=== PATIENT | male | born 1945 | race Caucasian/White ===

== ENCOUNTER 2016-06-03 09:56 | Inpatient (IN) | payer OTHER ==
[2016-06-03] MEDS ORDERED: cefTRIAXone 2 GM in D5W 50 ML IV SCH (10:30)
[2016-06-03] MEDS ORDERED: POTASSIUM Cl (KCl) 20 MEQ in D5W NS 1,000 ML IV SCH (10:30)
--- NOTE | 2016-06-03 11:44 | GHP ---
DATE OF ADMISSION: 06/03/2016 REASON FOR ADMISSION: Fever, jaundice, gallbladder hydrops. HISTORY OF PRESENT ILLNESS: The patient is a 71-year-old male who has been suffering from depressio n. He has a long history of depression and anxiety. He has been on multiple medications without be nefit. He did have liver dysfunction from Depakote in the past. He was recently started on Tegreto l, and after a single dose of Tegretol, he developed a fever to 102 and some chills. The Tegretol w as stopped, but he was treated empirically for influenza with Tamiflu. His temperature improved, bu t he was feeling somewhat worse and his urine became dark orange in color. He was seen and blood wo rk was obtained which showed that he had jaundice with bilirubin of 6 and the pattern of cholestatic jaundice. Ultrasound of the gallbladder was arranged which showed gallbladder hydrops and some slu dge in the gallbladder without obvious enlargement of the biliary tree of pancreatic ducts. He is b ng admitted for further evaluation and treatment. Of interest, he states that he has had gallblad shirley hydrops in the past which resolved spontaneously. CURRENT MEDICATIONS: Zofran as needed for nausea, propranolol 5 mg 3 times a day as needed for anxi ety, Carafate 1 g suspension 4 times daily, promethazine 12.5 mg as needed for nausea, tamsulosin 0. 4 mg once daily, Lumigan 0.1% solution 1 drop to his affected eye in the evening once daily, amlodip ine 2.5 mg daily, Crestor 5 mg daily, Plavix 75 mg daily, Synthroid 200 mcg daily, aspirin 81 mg diana ly, olanzapine 5 mg 1/2 tablet in the a.m. 1 tablet in the p.m., gabapentin 100 mg twice daily, Vist aril 25 mg every 8 hours as needed for nausea, trazodone 50 mg h.s. as needed for sleep, Benadryl 50 mg h.s. as needed for sleep, Tylenol as needed for pain, Ambien CR 12.5 mg h.s. p.r.n. sleep. PAST MEDICAL HISTORY: Significant for advanced coronary artery disease status post bypass graft as well as stenting x2, depression, asthma, GERD, diverticulitis, hypothyroidism, hyperlipidemia, prior Prinzmetal angina, right lateral compartment partial knee replacement, bilateral cataract surgery, sinus surgery x2, lumbar fusion and prior small bowel obstruction. ALLERGIES: He is allergic to Depakote because of liver failure. He does not tolerate benzodiazepin es well; he is not allergic, but he has had issues with benzodiazepines in the past. He is allergic to latex and IV CT contrast. REVIEW OF SYSTEMS: He is feeling nauseated. He still has fever to greater than 100 at night with s ome chills. He describes some significant nausea but no significant abdominal pain. He denies coug h, shortness of breath or congestion. PHYSICAL EXAMINATION: Pupils are equal and reactive to light. LUNGS: Clear to auscultation. HEAR T: Regular rate and rhythm without significant murmurs. ABDOMEN: Reveals normal bowel sounds to d ecreased bowel sounds. He has mild right upper abdominal tenderness. He has no peripheral __ and moves all extremities well. He is alert, oriented, appropriate. Appears somewhat anxious. He is also jaundiced. He has scleral icterus as well as jaundice tone to his skin. LABORATORY: Blood work obtained yesterday reveals a white count of 10,300 with a mild left shift, h emoglobin of 15.8, sodium 127, chloride 94, creatinine 1.5, BUN 23, total protein 6.2, aspartate ami notransferase 135, alkaline phosphatase 132, total bilirubin 6.0, alanine aminotransferase 300, conj ugated bilirubin is 4.4, unconjugated bilirubin is 1.6. IMPRESSION: Probable acute cholecystitis. Considering his long history of nausea, there is some co ncern about some underlying process contributing to his nausea that led up to this episode. PLAN: Will admit. Will place on IV antibiotics. Will get a GI consultation as well as surgical co nsultation. We will also get an MRI with and without contrast with special attention to the head of the pancreas. /[id number]/MODL
[2016-06-03 13:47] LABS: INR 1.05 (0.83-1.16); PROTIME(PATIENT) 13.6 SEC (12.0-15.0)
[2016-06-03 13:48] LABS: APTT 22.4 SEC (23.0-38.0)
[2016-06-03 13:53] LABS: ALANINE AMINOTRANSFERASE 213 IU/L (21-72); ALBUMIN 3.5 g/dL (3.5-5.0); ALKALINE PHOSPHATASE 222 IU/L (38-126); ANION GAP 12 mEq/L (8-16); ASPARTATE AMINOTRANSFERASE 120 IU/L (17-59); BILIRUBIN,TOTAL 6.5 mg/dL (0.1-1.4); CALCIUM 8.6 mg/dL (8.5-10.4); CARBON DIOXIDE 22 mEq/l (22-31); CHLORIDE 98 mEq/L (97-110); CREATININE 1.1 mg/dL (0.7-1.3); GLOMERULAR FILTRATION RATE > 60; GLUCOSE 181 mg/dL (70-100); POTASSIUM 4.1 mEq/L (3.5-5.2); SODIUM 132 mEq/L (134-144)
[2016-06-03 13:57] LABS: ABSOLUTE IMMATURE GRANULOCYTES 0.09 10^3/uL (0.00-0.10); ADD DIFF? NO; ADD MORPH? NO; ADD SCAN? NO; ATYPICAL LYMPHOCYTE FLAG 0 (0-99); FRAGMENT RBC FLAG 0 (0-99); HEMATOCRIT 43.8 % (40.0-51.0); HEMOGLOBIN 15.6 g/dL (13.7-17.5); LEFT SHIFT FLG 50 (0-99); LIPEMIA HEMOLYSIS FLAG 90 (0-99); MEAN CELL HEMOGLOBIN 29.4 pg (27.9-34.1); MEAN CELL HEMOGLOBIN CONCENTR. 35.6 g/dL (32.4-36.7); MEAN CELL VOLUME 82.5 fL (81.5-99.8); MEAN PLATELET VOLUME 10.6 fL (8.7-11.7); PLATELET CLUMPS FLAG 10 (0-99); PLATELET COUNT 94 10^3/uL (150-400); RED BLOOD CELL COUNT 5.31 10^6/uL (4.40-6.38); RED CELL DISTRIBUTION WIDTH 13.1 % (11.5-15.2)
[2016-06-03 13:59] LABS: BILIRUBIN-CONJUGATED 5.2 mg/dL (0.0-0.5); BILIRUBIN-UNCONJUGATED 1.3 mg/dL (0.0-1.1)
--- NOTE | 2016-06-03 14:55 | GCON ---
[f rep st] CONSULTATION GI INPATIENT CONSULTATION. DATE OF CONSULTATION: 06/03/2016 REASON FOR CONSULTATION: I was kindly requested to see this patient by Dr. Rick Portillo in consultation for a chief complaint of jaundice. HISTORY OF PRESENT ILLNESS: He is a 71-year-old white male who suffers from depression. He recently was started on Tegretol and took a single dose. He then developed fever to 102. He now has a total bilirubin of 6 and was admitted to the hospital. In the past, after 2 days of Depakote, he also developed jaundice with a total bilirubin of 16. Besides the above, for his fever, he was started on Tamiflu. He is on a large number of other medications. For the most part, he denies any of them being new or any increased doses. He was placed on olanzapine approximately 6 months ago, with the dose changed several times. Workup has included an ultrasound which, by report, has a normal common bile duct. There is mention of hydrops and sludge, with some possible fluid around the gallbladder. He denies abdominal pain. Besides the above, he has a long history of dyspepsia with nausea, epigastric "gnawing" discomfort, etc. He has undergone an extensive negative workup for this, both here as well as at [facility]. 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 PAST MEDICAL HISTORY: 1. As above. 2. Coronary artery disease, status post bypass graft and stenting. 3. Depression. 4. Asthma. 5. Reflux. 6. Hypothyroidism. 7. Elevated lipids. 8. Cataract surgery. 9. Lumbar fusion. 10. Otherwise, noncontributory. MEDICATIONS: Outpatient medications include Carafate, which helps with his dyspepsia. Inpatient medications include ceftriaxone, IV fluids. SOCIAL HISTORY: He is . ALLERGIES: Include the above. He also does not tolerate benzodiazepines well. He is allergic to latex and IV CT contrast dye. FAMILY HISTORY: Negative for similar jaundice. REVIEW OF SYSTEMS: Positive pertinent review of systems as per my HPI. Otherwise, a complete review of systems is negative. PHYSICAL EXAMINATION: CONSTITUTIONAL: A nontoxic-appearing gentleman. SKIN: Jaundiced, dry. EYES: Pupils equal, round, reactive to light and accommodation. EARS, NOSE, MOUTH AND THROAT: Oropharynx without masses. Moist mucosa. CARDIOVASCULAR: Normal S2, normal PMI. RESPIRATORY: Clear to auscultation and percussion anteriorly. GASTROINTESTINAL: Abdomen is soft, nontender. NEUROLOGIC: Grossly nonfocal with cranial nerves grossly intact. PSYCHIATRIC: Orientation, insight appropriate. MUSCULOSKELETAL: Strength is grossly normal throughout. Normal station. LABORATORIES: Include the above. White count 10.4. Platelet count 85,000. Lipase, CMV and hepatitis A serologies pending. Sodium 127. Creatinine 1.5. Direct bilirubin 4.4. AST 135 with an ALT of 300. Coagulation studies, alkaline phosphatase pending. 2016 iron saturation not elevated. MRI/MRCP pending. ASSESSMENT: 1. Jaundice. Almost certainly represents a drug hypersensitivity reaction to Tegretol. In support of this is the temporal relationship, associated fever, and similar jaundice to a related agent, Depakote, in the past. Other possibilities are less likely. Doubt an obstructive cause, with ultrasound showing a normal common bile duct. A side effect of Tamiflu or one of his other medications is possible but less likely, especially with his other medications being more chronic. A nonspecific secondary cholestasis from an acute viral syndrome, such as [place] virus, is possible but also less likely. 2. Chronic dyspeptic symptoms, including nausea, epigastric "gnawing" discomfort, etc. Extensive negative workup. 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 PLAN: 1. We will complete a serologic workup with acute serologies for hepatitis B, C. Overall, with denying risk factors, unlikely, but I suspect his jaundice may continue for some time, so important to be sure. 2. Blood work also for ABIEL, antismooth muscle antibody, and EBV serologies. 3. MRI/MRCP pending. 4. We will let him eat, as doubt a surgical gallbladder process (without biliary dilation, would not present with jaundice). I doubt he will be undergoing surgery today, etc. 5. Would consider Tegretol an allergy for him. 6. Recheck total bilirubin tomorrow. 7. Otherwise, time. With a drug hypersensitivity reaction, his total bilirubin may continue to increase over the next days or week(s) before it will eventually peak and then begin to slowly resolve to normal. Thank you for allowing me to help in the care of this patient. /[id number]/MODL MTDD
[2016-06-03] MEDS ORDERED: PROMETHAZINE HCL 25 MG TAB PO PRN (15:31)
[2016-06-03] MEDS ORDERED: PROPRANOLOL HCL 20 MG TAB PO PRN (15:31)
[2016-06-03] MEDS ORDERED: GABAPENTIN 100 MG CAP PO PRN (15:31)
[2016-06-03] MEDS ORDERED: ALBUTEROL 60 PUFFS/8 GM MDI IH PRN (15:31)
[2016-06-03] MEDS: ONDANSETRON 4 MG/2 ML VIAL IVP PRN (15:39)
[2016-06-03] MEDS: D5W NS W/ 20 KCl/L 1,000 ML IV SCH ×2 (15:53→23:36)
[2016-06-03] MEDS: ACETAMINOPHEN 325 MG TAB PO PRN (15:54)
[2016-06-03] MEDS ORDERED: GADOBUTROL 10 ML VIAL IVP ONE (16:37)
--- NOTE | 2016-06-03 16:40 | GCON ---
[f rep st] CONSULTATION GENERAL SURGERY CONSULTATION DATE OF CONSULTATION: 06/03/2016 REASON FOR CONSULTATION: Cholelithiasis and elevated LFTs in the setting of nausea and malaise. 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 He had a similar episode years ago after taking Depakote. At that time, he also had an increase in liver function tests, as he does now. He was recently started on Tegretol prior to this episode. He denies abdominal pain, but he has been quite nauseated. He has not thrown up and denies fevers. Ultrasound showed possible hydrops of the gallbladder with slu dge. Labs were significant for a conjugated bilirubin of 5.2 and unconjugated bilirubin of 1.3. He also had elevated hepatic transaminases in the 200s. He had a normal lipase. An MRCP is pending. PAST MEDICAL HISTORY: Includes coronary artery disease, asthma, depression, hypothyroidism, acid re flux. PAST SURGICAL HISTORY: Includes coronary stents, CABG, spinal fusion. MEDICATIONS: Include Plavix. Please see [employer] for details. ALLERGIES: From chart review include Depakote, benzodiazepines, iodine contrast, latex. SOCIAL HISTORY: Patient is a retired radiologist. He lives in [place]. He denies smoking. FAMILY HISTORY: Noncontributory. REVIEW OF SYSTEMS: Please see HPI. PHYSICAL EXAM: GENERAL: Reveals a well-developed, well-nourished 71-year-old male, alert and orien orly x3, and in no acute distress. HEENT: Mild scleral icterus. Mucous membranes moist. Pupils eq ual and round. CHEST: Clear to auscultation bilaterally. CARDIAC: Regular rate and rhythm. ABDO MEN: Soft. Diffuse discomfort but nontender. EXTREMITIES: Warm and dry without edema. IMPRESSION: This is a 71-year-old male with nausea, malaise, and elevated LFTs, possibly secondary to drug reaction, possibly secondary to cholecystitis. PLAN: Agree with MRCP. Appreciate Internal Medicine and Gastroenterology input. This may not be a gallbladder process, but we will continue to follow in case cholecystectomy is needed. I will also discuss this with Dr. Mueller, who will see the patient later today. /[id number]/MODL
[2016-06-03] MEDS: POLYETHYLENE GLYCOL 3350 17 GM PKT PO SCH (17:21)
[2016-06-03] MEDS ORDERED: SUCRALFATE 1 GM/10 ML UDCUP PO PRN (17:30)
[2016-06-03] MEDS: HYDROCODONE/APAP 5/325 TAB PO PRN ×2 (19:31→22:33)
[2016-06-03] MEDS: amLODIPine BESYLATE 5 MG TAB PO SCH (20:54)
[2016-06-03] MEDS ORDERED: PANTOPRAZOLE SODIUM 40 MG TAB PO SCH (21:00)
[2016-06-03] MEDS: PANTOPRAZOLE SODIUM 40 MG in NS 100 ML IV SCH (21:02)
[2016-06-03] MEDS: traZODone 50 MG TAB PO SCH (22:09)
[2016-06-03] MEDS: OLANZapine 5 MG TAB PO SCH (22:09)
[2016-06-03] MEDS: ZOLPIDEM TARTRATE 5 MG TAB PO SCH (22:09)
[2016-06-04] MEDS: diphenhydrAMINE 25 MG CAP PO PRN ×2 (02:05→23:43)
[2016-06-04] MEDS: HYDROCODONE/APAP 5/325 TAB PO PRN (03:34)
[2016-06-04 05:59] LABS: ABSOLUTE IMMATURE GRANULOCYTES 0.08 10^3/uL (0.00-0.10); ADD DIFF? NO; ADD MORPH? NO; ADD SCAN? NO; ATYPICAL LYMPHOCYTE FLAG 80 (0-99); FRAGMENT RBC FLAG 0 (0-99); HEMATOCRIT 36.9 % (40.0-51.0); HEMOGLOBIN 13.2 g/dL (13.7-17.5); LEFT SHIFT FLG 40 (0-99); LIPEMIA HEMOLYSIS FLAG 90 (0-99); MEAN CELL HEMOGLOBIN 29.9 pg (27.9-34.1); MEAN CELL HEMOGLOBIN CONCENTR. 35.8 g/dL (32.4-36.7); MEAN CELL VOLUME 83.5 fL (81.5-99.8); MEAN PLATELET VOLUME 10.5 fL (8.7-11.7); PLATELET CLUMPS FLAG 0 (0-99); PLATELET COUNT 91 10^3/uL (150-400); RED BLOOD CELL COUNT 4.42 10^6/uL (4.40-6.38); RED CELL DISTRIBUTION WIDTH 13.2 % (11.5-15.2)
[2016-06-04 06:15] LABS: ALANINE AMINOTRANSFERASE 216 IU/L (21-72); ALBUMIN 2.7 g/dL (3.5-5.0); ALKALINE PHOSPHATASE 226 IU/L (38-126); ANION GAP 10 mEq/L (8-16); ASPARTATE AMINOTRANSFERASE 122 IU/L (17-59); BILIRUBIN,TOTAL 5.1 mg/dL (0.1-1.4); CALCIUM 7.9 mg/dL (8.5-10.4); CARBON DIOXIDE 22 mEq/l (22-31); CHLORIDE 99 mEq/L (97-110); CREATININE 1.1 mg/dL (0.7-1.3); GLOMERULAR FILTRATION RATE > 60; GLUCOSE 265 mg/dL (70-100); POTASSIUM 4.3 mEq/L (3.5-5.2); SODIUM 131 mEq/L (134-144)
[2016-06-04] MEDS: LEVOTHYROXINE 200 MCG TAB PO SCH (06:16)
[2016-06-04 06:21] LABS: BILIRUBIN-CONJUGATED 4.2 mg/dL (0.0-0.5); BILIRUBIN-UNCONJUGATED 0.9 mg/dL (0.0-1.1)
[2016-06-04] MEDS: TAMSULOSIN HCL 0.4 MG CAP PO SCH (08:17)
[2016-06-04] MEDS: ACETAMINOPHEN 325 MG TAB PO PRN ×2 (08:17→15:57)
[2016-06-04] MEDS: D5W NS W/ 20 KCl/L 1,000 ML IV SCH (08:17)
[2016-06-04] MEDS: ONDANSETRON DISINTEGRATING 4 MG TAB PO PRN ×2 (08:17→13:38)
[2016-06-04] MEDS: BIMATOPROST 0.01% 2.5 ML OPHT.BTL EACHEYE SCH (08:18)
[2016-06-04] MEDS ORDERED: ROSUVASTATIN CALCIUM 10 MG TAB PO SCH (09:00)
[2016-06-04] MEDS ORDERED: OLANZapine 2.5 MG TAB PO SCH (09:00)
[2016-06-04] MEDS: PANTOPRAZOLE SODIUM 40 MG in NS 100 ML IV SCH (09:43)
[2016-06-04] MEDS: POLYETHYLENE GLYCOL 3350 17 GM PKT PO SCH (11:46)
--- NOTE | 2016-06-04 12:34 | SOAPPROG ---
SOAP Progress Note Assessment/Plan: Assessment: 71 yo male w/ jaundice/transaminitis- -Appreciate input of GI/surgery. Hep panel neg. Bilirubin both conjugated and unconjugated improving, now afebrile, still c/o of dyspepsia/feeling nauseated but also appetite returning and would like eat. He is inclined not to pursue cholecystectomy at this time - he does have sludge but no stones or obstruction contributing currently, he did have sludge noted many years ago as well. Will follow and dw Dr. Renteria and Dr. Mueller. Autoimmune serology w/u or viral etiology w/u pending results, but most likely it appears this was a reaction to tegretol (bao given he had a similar reaction to depakote in the past). Will recheck labs in am, cont anti-emetics. -h/o cad - cont crestor -h/o hypothryoid - levothyroxine 200 -anxiety - cont on olanzapine, propranolol, gabapentin. -dispo - if labs cont to improve and he feels better possibly d/c home in next 1 -2 days unless changes mind re: cholecystectomy. Plan: 06/04/16 13:04 06/04/16 13:07 Subjective: Feeling a little better today, does not wish to pursue cholecystectomy at this time, would like to eat Objective: Vital Signs Temp Pulse Resp BP Pulse Ox 37.3 C 77 18 129/66 H 96 06/04/16 11:11 06/04/16 08:00 06/04/16 08:00 06/04/16 08:00 06/04/16 08:00 Laboratory Results 06/04/16 04:17 06/04/16 04:17 06/03/16 06/04/16 06/05/16 05:59 05:59 05:59 Intake Total 675 Balance 675 PT 13.6 SEC (12.0-15.0) 06/03/16 13:30 INR 1.05 (0.83-1.16) 06/03/16 13:30 Gen: up ambulating w/ walker HEENT; jaundice, scleral icterus Neck: soft/supple CHEST: cta b CV: rrr Abd: soft nt nd nl bs no RUQ discomfort Ext : no edema ICD10 Worksheet Patient Problems: Problems Problem Status Onset Lumbar disc prolapse with radiculopathy Active Lumbar spondylosis Active Chest pressure Acute Coronary artery disease Acute Dizziness Acute Rectal bleed Acute
[2016-06-04] MEDS: oxyCODONE IR 5 MG TAB PO PRN ×3 (13:38→22:32)
[2016-06-04] MEDS: OLANZapine 5 MG TAB PO SCH (20:54)
[2016-06-04] MEDS: amLODIPine BESYLATE 5 MG TAB PO SCH (20:55)
[2016-06-04] MEDS: PANTOPRAZOLE SODIUM 40 MG TAB PO SCH (21:04)
--- NOTE | 2016-06-04 21:14 | SOAPPROG ---
SOAP Progress Note Assessment/Plan: Assessment/Plan: 1. Jaundice. With MRCP findings, intrinsic in nature. Drug hypersensitivity reaction to tegretol still most likely. A delayed side-effect to one of his other multiple medications, or prior tamiflu, possible. A viral syndrome, with fever and secondary cholestasis, is also possible. - recheck TB in A.M. - drug holiday from other possible outpt offenders (will stop olasapine, rosuvastatin, neurontin) 2. T 38.3. See above. - d/c ceftriaxzone, as no etiology for the above at this point - BC pending - check U/A, CXR Case d/w Dr. Blackmon (and earlier in the day with Dr. Mueller). 06/04/16 21:18 Subjective: cc: jaundice Headache. No abdominal pain. Shaky, but no rigors, sweats. Objective: Vital Signs Temp Pulse Resp BP Pulse Ox 38.3 C 76 18 149/76 H 94 06/04/16 16:00 06/04/16 16:00 06/04/16 16:00 06/04/16 16:00 06/04/16 16:00 Laboratory Results 06/04/16 04:17 06/04/16 04:17 06/03/16 06/04/16 06/05/16 05:59 05:59 05:59 Intake Total 675 Balance 675 PT 13.6 SEC (12.0-15.0) 06/03/16 13:30 INR 1.05 (0.83-1.16) 06/03/16 13:30 MRI/MRCP negative, except mild pericholecystic fluid. TB decreased to 5.1. Hep A, B, C negative. CMV, ABIEL negative. ASMA, EBV pending. Physical Exam - Physical Exam General Appearance: WD/WN, alert, no apparent distress EENT: PERRL/EOMI, normal ENT inspection, pharynx normal, TMs normal Neck: non-tender, full range of motion, supple, normal inspection Respiratory: chest non-tender, lungs clear, normal breath sounds Cardiac/Chest: normal peripheral pulses, regular rate, rhythm Peripheral Pulses: 2+: carotid (R), carotid (L), femoral (R), femoral (L), dorsalis-pedis (R), dorsalis-pedis (L) Abdomen: normal bowel sounds, non-tender, soft Male Genitalia: deferred Rectal: deferred Back: Normal inspection Skin: warm/dry, jaundice Lymphatic: no adenopathy Extremities: normal range of motion, non-tender, normal inspection, normal capillary refill Neuro/Psych: no motor/sensory deficits, alert, normal mood/affect, oriented x 3 ICD10 Worksheet Patient Problems: Problems Problem Status Onset Lumbar disc prolapse with radiculopathy Active Lumbar spondylosis Active Chest pressure Acute Coronary artery disease Acute Dizziness Acute Rectal bleed Acute
[2016-06-04] MEDS: ZOLPIDEM TARTRATE 5 MG TAB PO SCH (22:33)
[2016-06-04] MEDS: traZODone 50 MG TAB PO SCH (22:33)
--- NOTE | 2016-06-04 23:43 | SOAPPROG ---
SOAP Progress Note Assessment/Plan: Assessment: CONFUSING PICTRE WITH FEVER AND CHILLS AND SHAKING BUT HUNGRY WBC NORMAL/ LFTs STABLE ABD SOFT AND NONTENDER WITH NO ORGANOMEGALY STILL MILDLY ICTERIC SOME SUGGESTION OF CHOLANGITIS WITH RIGOR AND FEVER BUT MRI - FOR DUCTAL DILATATION OR STONES ? BENEFIT OF HIDA WITH ELEVATED BILI Plan:OBS 06/04/16 23:40 Objective: Vital Signs Temp Pulse Resp BP Pulse Ox 37.4 C 71 14 133/68 H 89 L 06/04/16 22:06 06/04/16 22:06 06/04/16 22:06 06/04/16 22:06 06/04/16 22:06 Laboratory Results 06/04/16 04:17 06/04/16 04:17 06/03/16 06/04/16 06/05/16 05:59 05:59 05:59 Intake Total 675 Balance 675 PT 13.6 SEC (12.0-15.0) 06/03/16 13:30 INR 1.05 (0.83-1.16) 06/03/16 13:30 ICD10 Worksheet Patient Problems: Problems Problem Status Onset Lumbar disc prolapse with radiculopathy Active Lumbar spondylosis Active Chest pressure Acute Coronary artery disease Acute Dizziness Acute Rectal bleed Acute
[2016-06-05 00:38] LABS: COLOR AMBER; LEUKOCYTE ESTERASE,URINE NEGATIVE (NEGATIVE); NITRITE,URINE NEGATIVE (NEGATIVE)
[2016-06-05] MEDS: oxyCODONE IR 5 MG TAB PO PRN ×3 (03:10→21:28)
[2016-06-05] MEDS: ONDANSETRON 4 MG/2 ML VIAL IVP PRN (03:15)
[2016-06-05] MEDS: ACETAMINOPHEN 325 MG TAB PO PRN ×2 (04:28→16:36)
[2016-06-05 05:39] LABS: % IMMATURE GRANULYOCYTES 0.8 % (0.0-1.1); ABSOLUTE IMMATURE GRANULOCYTES 0.08 10^3/uL (0.00-0.10); ADD DIFF? NO; ADD MORPH? NO; ADD SCAN? NO; ATYPICAL LYMPHOCYTE FLAG 0 (0-99); FRAGMENT RBC FLAG 0 (0-99); HEMATOCRIT 37.2 % (40.0-51.0); HEMOGLOBIN 13.4 g/dL (13.7-17.5); LEFT SHIFT FLG 10 (0-99); LIPEMIA HEMOLYSIS FLAG 90 (0-99); MEAN CELL HEMOGLOBIN 29.8 pg (27.9-34.1); MEAN CELL VOLUME 82.7 fL (81.5-99.8); MEAN PLATELET VOLUME 10.8 fL (8.7-11.7); PLATELET CLUMPS FLAG 0 (0-99); PLATELET COUNT 89 10^3/uL (150-400); RED CELL DISTRIBUTION WIDTH 13.2 % (11.5-15.2)
[2016-06-05 05:54] LABS: ALANINE AMINOTRANSFERASE 244 IU/L (21-72); ALBUMIN 2.8 g/dL (3.5-5.0); ALKALINE PHOSPHATASE 306 IU/L (38-126); ANION GAP 9 mEq/L (8-16); ASPARTATE AMINOTRANSFERASE 120 IU/L (17-59); BILIRUBIN,TOTAL 6.3 mg/dL (0.1-1.4); CARBON DIOXIDE 18 mEq/l (22-31); CHLORIDE 100 mEq/L (97-110); CREATININE 1.1 mg/dL (0.7-1.3); GLOMERULAR FILTRATION RATE > 60; GLUCOSE 251 mg/dL (70-100); POTASSIUM 4.8 mEq/L (3.5-5.2); SODIUM 127 mEq/L (134-144); TOTAL PROTEIN 5.1 g/dL (6.3-8.2)
[2016-06-05 06:01] LABS: BILIRUBIN-CONJUGATED 5.1 mg/dL (0.0-0.5); BILIRUBIN-UNCONJUGATED 1.2 mg/dL (0.0-1.1)
[2016-06-05] MEDS: LEVOTHYROXINE 200 MCG TAB PO SCH (06:10)
[2016-06-05] MEDS: ONDANSETRON DISINTEGRATING 4 MG TAB PO PRN ×3 (06:51→21:22)
[2016-06-05] MEDS: D5W NS W/ 20 KCl/L 1,000 ML IV SCH ×2 (07:53→16:45)
[2016-06-05] MEDS: PANTOPRAZOLE SODIUM 40 MG TAB PO SCH ×2 (07:54→20:08)
[2016-06-05] MEDS: BIMATOPROST 0.01% 2.5 ML OPHT.BTL EACHEYE SCH (07:54)
[2016-06-05] MEDS: TAMSULOSIN HCL 0.4 MG CAP PO SCH (07:54)
--- NOTE | 2016-06-05 09:38 | SOAPPROG ---
SOAP Progress Note Assessment/Plan: Assessment/Plan: Jaundice. Cholestatic LFTs today about the same. With MRCP findings yesterday , intrinsic in nature. Drug hypersensitivity reaction to tegretol still most likely. A delayed side-effect to one of his other multiple medications, or prior tamiflu, possible. A viral syndrome, with fever (no further today) and secondary cholestasis, is also possible. - recheck TB in A.M. - he does not wish to stop his olasapine; will restart - doubt gallbladder process; however, if there is any question, HIDA scan might be helpful (with jaundice, tends to be inaccurate only if bilirubin very high); as per hospitalist. - time 06/05/16 09:45 Subjective: cc: jaundice Afebrile. Continues to feel nauseous, fatigued, "run down." No significant abdominal pain. Objective: Vital Signs Temp Pulse Resp BP Pulse Ox 37.0 C 67 18 130/79 H 91 L 06/05/16 07:15 06/05/16 07:15 06/05/16 07:15 06/05/16 07:15 06/05/16 07:15 Laboratory Results 06/05/16 04:24 06/05/16 04:24 06/04/16 06/05/16 06/06/16 05:59 05:59 05:59 Intake Total 675 Balance 675 PT 13.6 SEC (12.0-15.0) 06/03/16 13:30 INR 1.05 (0.83-1.16) 06/03/16 13:30 U/A only 3 - 5 qbc/hpf CXR pending EVBV, ASMA pending Physical Exam - Physical Exam General Appearance: WD/WN, alert, no apparent distress EENT: PERRL/EOMI, normal ENT inspection, pharynx normal, TMs normal Neck: non-tender, full range of motion, supple, normal inspection Respiratory: chest non-tender, lungs clear, normal breath sounds Cardiac/Chest: normal peripheral pulses, regular rate, rhythm Peripheral Pulses: 2+: carotid (R), carotid (L), femoral (R), femoral (L), dorsalis-pedis (R), dorsalis-pedis (L) Abdomen: normal bowel sounds, non-tender, soft Male Genitalia: deferred Rectal: deferred Back: Normal inspection Skin: warm/dry, jaundice Lymphatic: no adenopathy Extremities: normal range of motion, non-tender, normal inspection, normal capillary refill Neuro/Psych: no motor/sensory deficits, alert, normal mood/affect, oriented x 3 ICD10 Worksheet Patient Problems: Problems Problem Status Onset Lumbar disc prolapse with radiculopathy Active Lumbar spondylosis Active Chest pressure Acute Coronary artery disease Acute Dizziness Acute Rectal bleed Acute
[2016-06-05] MEDS: hydrOXYzine HCL 25 MG TAB PO PRN (13:36)
[2016-06-05] MEDS ORDERED: FUROSEMIDE 20 MG/2 ML VIAL IVP ONE (17:00)
[2016-06-05] MEDS: POLYETHYLENE GLYCOL 3350 17 GM PKT PO SCH (17:29)
--- NOTE | 2016-06-05 17:54 | SOAPPROG ---
SOAP Progress Note Assessment/Plan: Assessment: Acute cholecystitis. Stable obstructive/cholestatic jaundice with mild elevations of transaminases. Plan: Surgery in AM. 06/05/16 17:54 Subjective: Pt feeling weak. Continues to have temperatures. SOme appetite. No abdominal pain. Objective: Vital Signs Temp Pulse Resp BP Pulse Ox 38.7 C H 72 14 168/92 H 90 L 06/05/16 16:24 06/05/16 16:24 06/05/16 16:24 06/05/16 16:24 06/05/16 16:24 Laboratory Results 06/05/16 04:24 06/05/16 04:24 06/04/16 06/05/16 06/06/16 05:59 05:59 05:59 Intake Total 675 500 Balance 675 500 PT 13.6 SEC (12.0-15.0) 06/03/16 13:30 INR 1.05 (0.83-1.16) 06/03/16 13:30 Lungs without rales. Bowel sounds good. Abdomen with mild tenderness in RUQ. US demonstrates thickened gallbladder wall with pericolic fluid. ICD10 Worksheet Patient Problems: Problems Problem Status Onset Lumbar disc prolapse with radiculopathy Active Lumbar spondylosis Active Chest pressure Acute Coronary artery disease Acute Dizziness Acute Rectal bleed Acute
[2016-06-05] MEDS: HYDROmorphONE/DILAUDID 1 MG/ML SYR IVP PRN (19:27)
[2016-06-05] MEDS: OLANZapine 5 MG TAB PO SCH (20:08)
[2016-06-05] MEDS: ERTAPENEM 1 GM in NS 100 ML IV SCH (20:08)
[2016-06-05] MEDS: amLODIPine BESYLATE 5 MG TAB PO SCH (20:09)
[2016-06-05 20:18] LABS: ANTI EBNA Equivocal (Negative); ANTI VCA/IgG Positive (Negative); ANTI VCA/IgM Negative (Negative); INTERPRETATION See Comments
[2016-06-05] MEDS: IBUPROFEN 200 MG TAB PO PRN (21:22)
[2016-06-05] MEDS: PROPRANOLOL HCL 40 MG TAB PO PRN (21:27)
[2016-06-05 21:52] LABS: 25-HYDROXY D2 <4.0 ng/mL; 25-HYDROXY D3 31 ng/mL; VITAMIN D 25-HYDROXY SERUM 31 ng/mL
[2016-06-05] MEDS: ZOLPIDEM TARTRATE 5 MG TAB PO SCH (22:26)
[2016-06-05] MEDS: traZODone 50 MG TAB PO SCH (22:26)
[2016-06-06] MEDS: oxyCODONE IR 5 MG TAB PO PRN ×3 (03:38→22:13)
[2016-06-06] MEDS: IBUPROFEN 200 MG TAB PO PRN ×2 (03:38→22:13)
[2016-06-06] MEDS: PROPRANOLOL HCL 40 MG TAB PO PRN ×2 (03:38→17:06)
[2016-06-06] MEDS: HYDROmorphONE/DILAUDID 1 MG/ML SYR IVP PRN ×3 (04:20→20:16)
[2016-06-06] MEDS: LEVOTHYROXINE 200 MCG TAB PO SCH (05:14)
--- NOTE | 2016-06-06 06:11 | SOAPPROG ---
SOAP Progress Note Assessment/Plan: Assessment: CONFUSING PICTRE WITH FEVER AND CHILLS AND SHAKING BUT HUNGRY WBC NORMAL/ LFTs STABLE ABD SOFT AND NONTENDER WITH NO ORGANOMEGALY STILL MILDLY ICTERIC SOME SUGGESTION OF CHOLANGITIS WITH RIGOR AND FEVER BUT MRI - FOR DUCTAL DILATATION OR STONES ? BENEFIT OF HIDA WITH ELEVATED BILI Plan:OBS 06/04/16 23:40 06/06/16 06:08 SEEN LAST TWO DAYS/ ELEVATED LFTs/ -MRI / SX OF CHOLANGITIS/ RECENT US SHOWING SEVERE CHOLECYSTITIS WITH STONES BUT NORMAL DUCTS PT READY FOR LAP KIM/ RISKS AND OPTIONS FULLY DISCUSSED AND HE WISHES TO PROCEED/ VERY ANXIOUS ON CHRONIC BASIS Objective: Vital Signs Temp Pulse Resp BP Pulse Ox 36.9 C 70 16 134/69 H 88 L 06/05/16 22:17 06/06/16 03:38 06/05/16 22:17 06/06/16 03:38 06/05/16 22:17 Laboratory Results 06/05/16 04:24 06/05/16 04:24 06/05/16 06/06/16 06/07/16 05:59 05:59 06:59 Intake Total 500 Balance 500 PT 13.6 SEC (12.0-15.0) 06/03/16 13:30 INR 1.05 (0.83-1.16) 06/03/16 13:30 ICD10 Worksheet Patient Problems: Problems Problem Status Onset Lumbar disc prolapse with radiculopathy Active Lumbar spondylosis Active Chest pressure Acute Coronary artery disease Acute Dizziness Acute Rectal bleed Acute
[2016-06-06] MEDS: TAMSULOSIN HCL 0.4 MG CAP PO SCH ×2 (07:15→12:00)
[2016-06-06] MEDS: PANTOPRAZOLE SODIUM 40 MG TAB PO SCH ×2 (07:15→20:15)
[2016-06-06] MEDS ORDERED: IOTHALAMATE MEG (CONRAY) 50 ML VIAL IV ONE (07:20)
[2016-06-06] MEDS ORDERED: BUPIVACAINE 0.5% 30 ML SDV ONE (07:20)
[2016-06-06] MEDS ORDERED: SKIN ADHESIVE (DERMABOND) 1 EACH TP ONE (07:20)
[2016-06-06] MEDS: ONDANSETRON 4 MG/2 ML VIAL IVP PRN (07:24)
[2016-06-06] MEDS ORDERED: HEPARIN 1000 UNIT/1 ML MDV ONE (07:31)
[2016-06-06] MEDS ORDERED: ceFAZolin 1 GM/5 ML SYR ONE (07:31)
--- NOTE | 2016-06-06 07:43 | SOAPPROG ---
SOAP Progress Note Assessment/Plan: Assessment: CONFUSING PICTRE WITH FEVER AND CHILLS AND SHAKING BUT HUNGRY WBC NORMAL/ LFTs STABLE ABD SOFT AND NONTENDER WITH NO ORGANOMEGALY STILL MILDLY ICTERIC SOME SUGGESTION OF CHOLANGITIS WITH RIGOR AND FEVER BUT MRI - FOR DUCTAL DILATATION OR STONES ? BENEFIT OF HIDA WITH ELEVATED BILI Plan:OBS 06/04/16 23:40 06/06/16 06:08 SEEN LAST TWO DAYS/ ELEVATED LFTs/ -MRI / SX OF CHOLANGITIS/ RECENT US SHOWING SEVERE CHOLECYSTITIS WITH STONES BUT NORMAL DUCTS PT READY FOR LAP FRAN/ RISKS AND OPTIONS FULLY DISCUSSED AND HE WISHES TO PROCEED/ VERY ANXIOUS ON CHRONIC BASIS 06/06/16 07:41 seen this am preop/ ready for surgery but nervous/ high temp yesterday but now afebrile/ surgical risks and options fully discussed again/ plan lap fran with grams Objective: Vital Signs Temp Pulse Resp BP Pulse Ox 36.9 C 70 16 134/69 H 88 L 06/05/16 22:17 06/06/16 03:38 06/05/16 22:17 06/06/16 03:38 06/05/16 22:17 Laboratory Results 06/05/16 04:24 06/05/16 04:24 06/05/16 06/06/16 06/07/16 05:59 05:59 06:59 Intake Total 500 Balance 500 PT 13.6 SEC (12.0-15.0) 06/03/16 13:30 INR 1.05 (0.83-1.16) 06/03/16 13:30 ICD10 Worksheet Patient Problems: Problems Problem Status Onset Lumbar disc prolapse with radiculopathy Active Lumbar spondylosis Active Chest pressure Acute Coronary artery disease Acute Dizziness Acute Rectal bleed Acute
[2016-06-06] MEDS ORDERED: MIDAZOLAM 2 MG/2 ML VIAL ONE (08:36)
[2016-06-06] MEDS ORDERED: REMIFENTANIL HCL 1 MG VIAL ONE ×2 (08:42→09:26)
[2016-06-06] MEDS ORDERED: PROPOFOL/EMULSION 500 MG/50 ML BOTTLE IV ONE ×2 (08:42→09:26)
[2016-06-06] MEDS ORDERED: ROCURONIUM 50 MG/5 ML VIAL ONE (08:42)
[2016-06-06] MEDS ORDERED: ONDANSETRON 4 MG/2 ML VIAL ONE ×2 (08:43→10:15)
[2016-06-06] MEDS ORDERED: DEXAMETHASONE 4 MG/ML VIAL ONE ×2 (08:43)
[2016-06-06] MEDS ORDERED: LIDOCAINE HCL 160 MG/4 ML LTA KIT TP ONE (08:43)
[2016-06-06] MEDS ORDERED: LIDOCAINE 2% 100 MG/5 ML SYR ONE (08:43)
[2016-06-06] MEDS ORDERED: SUGAMMADEX SODIUM 200 MG/2 ML VIAL IVP ONE (09:43)
--- NOTE | 2016-06-06 10:06 | POSTOPPROG ---
Post Op Note Date of Operation: 06/06/16 Surgeon: Vance Mueller Finished Cloth Checker: MIKE Anesthesiologist: TOMMY Anesthesia: GET(General Endotracheal) Pre-op Diagnosis: ACUTE CHOLECYSTITIS Post-op Diagnosis: SAME, POSSIBLE CHOLEDOCHAL LITHIASIS Indication: JAUNDICE, FEVER, NAUSEA Procedure: LAP KIM WITH GRAMS, WEDGE LIVER BX Findings: MARKED EDEMA, SMALL STONES, ?FILLING DEFECT IN CD Inf/Abcess present in the surg proc area at time of surgery?: Yes Depth: Organ Space EBL: Minimal Complications: 0 Specimen(s): GALLBLADDER, LIVER BX
[2016-06-06] MEDS ORDERED: ONDANSETRON 4 MG/2 ML VIAL IVP PRN (10:11)
[2016-06-06] MEDS ORDERED: D5W 1/2 NS W/ 20 KCl/L 1,000 ML IV SCH (10:15)
[2016-06-06] MEDS ORDERED: fentaNYL 100 MCG/2 ML INJ ONE (10:16)
[2016-06-06] MEDS: D5W NS W/ 20 KCl/L 1,000 ML IV SCH (11:02)
[2016-06-06] MEDS: BIMATOPROST 0.01% 2.5 ML OPHT.BTL EACHEYE SCH (12:01)
--- NOTE | 2016-06-06 13:39 | GOP ---
[f rep st] OPERATIVE REPORT DATE OF OPERATION: 06/06/2016 SURGEON: Vance Mueller MD NETWORK SECURITY OFFICER: Lily Crawford PA-C. ANESTHESIOLOGIST: Dr. Wilkins. PREOPERATIVE DIAGNOSIS: Acute cholecystitis. POSTOPERATIVE DIAGNOSIS: Acute cholecystitis. Possible choledocholithiasis. PROCEDURE PERFORMED: 1. Laparoscopic cholecystectomy with intraoperative cholangiography. 2. Wedge liver biopsy. FINDINGS: Patient was found to have fatty liver which was otherwise grossly normal in appearance. He had a markedly edematous, thickened gallbladder that was still quite flexible and movable with sm all ducts. Cholangiogram revealed possible filling defects in the common duct, but there was free f low into the duodenum and no dilatation of the ducts. DESCRIPTION OF PROCEDURE: The patient was taken to the operating room where he received satisfactor y general endotracheal anesthesia by Dr. Wilkins. He was placed in the supine position, prepped and d raped in usual sterile fashion. An infraumbilical incision was made. A Veress needle was inserted. Pneumoperitoneum was established. A trocar was introduced. Good visualization was obtained. Thr ee other trocars placed in the upper abdomen under direct vision. The gallbladder was elevated up. It was markedly edematous. The cystic triangle was carefully dissected free. The cystic duct was isolated as was the cystic artery. Good clear view was obtained. Then, with much care to avoid inj ury to the common bile duct, the cystic artery was hemoclipped and divided. The cystic du ct was hemoclipped proximally. An incision was made in the duct, and a cholangiogram catheter was b rought in through a separate stab incision and into the cystic duct. Cholangiography was performed with the C-arm, a little bit hard to interpret because of multiple pieces of hardware in his back, b ut there did appear to be filling defects in the midportion of the common bile duct. The cholangiog marissa catheter was removed. The cystic duct was multiply hemoclipped and divided with care to avoid i njury to the common duct. Peritoneum of the gallbladder was incised. The gallbladder was dissected free from the bed and the hepatic fossa, and extracted through the upper midline port site. Hemost asis was carefully obtained. A wedge liver biopsy was done of the right lobe of the liver. Hemosta sis was obtained with electrocautery. The wound was irrigated. Trocars were removed under direct v ision. Trocar sites were closed with 0 Vicryl for the fascia, 4-0 Monocryl subcuticular stitch for the skin. All layers were infiltrated with % Marcaine. Blood loss was less than 10 cc. There were no complications. He was taken to the recovery room in good condition. /[id number]/MODL
--- NOTE | 2016-06-06 13:43 | SOAPPROG ---
SOAP Progress Note Assessment/Plan: Assessment: Acute cholecystitis. Doing well post op. L basal rales, ? fluid overload. Plan: Cont with diuretic. Recheck CXR. Advance diet as tolerated. 06/05/16 17:54 06/06/16 13:42 Subjective: Doing well post op. Pain under excellent control. Mild nausea. No gas pr rectum yet. Objective: Vital Signs Temp Pulse Resp BP Pulse Ox 37.2 C 60 18 149/80 H 96 06/06/16 13:27 06/06/16 13:27 06/06/16 13:27 06/06/16 13:27 06/06/16 13:27 Microbiology 06/06/16 09:31 Gram Stain - Final Gallbladder - Eswab Laboratory Results 06/05/16 04:24 06/05/16 04:24 06/05/16 06/06/16 06/07/16 05:59 05:59 06:59 Intake Total 500 1000 Output Total 275 Balance 500 725 PT 13.6 SEC (12.0-15.0) 06/03/16 13:30 INR 1.05 (0.83-1.16) 06/03/16 13:30 Lungs with L basal rales. Excellent bowel tones. No significant edema. ICD10 Worksheet Patient Problems: Problems Problem Status Onset Lumbar disc prolapse with radiculopathy Active Lumbar spondylosis Active Chest pressure Acute Coronary artery disease Acute Dizziness Acute Rectal bleed Acute
[2016-06-06] MEDS ORDERED: FUROSEMIDE 20 MG/2 ML VIAL IVP ONE (13:48)
[2016-06-06 15:01] LABS: ALANINE AMINOTRANSFERASE 223 IU/L (21-72); ALBUMIN 2.8 g/dL (3.5-5.0); ALKALINE PHOSPHATASE 368 IU/L (38-126); ANION GAP 11 mEq/L (8-16); ASPARTATE AMINOTRANSFERASE 119 IU/L (17-59); BILIRUBIN,TOTAL 7.1 mg/dL (0.1-1.4); CALCIUM 7.8 mg/dL (8.5-10.4); CARBON DIOXIDE 20 mEq/l (22-31); CHLORIDE 97 mEq/L (97-110); CREATININE 0.9 mg/dL (0.7-1.3); GLOMERULAR FILTRATION RATE > 60; GLUCOSE 309 mg/dL (70-100); POTASSIUM 4.6 mEq/L (3.5-5.2); SODIUM 128 mEq/L (134-144); TOTAL PROTEIN 5.2 g/dL (6.3-8.2)
[2016-06-06 15:16] LABS: BILIRUBIN-CONJUGATED 5.9 mg/dL (0.0-0.5); BILIRUBIN-UNCONJUGATED 1.2 mg/dL (0.0-1.1)
--- NOTE | 2016-06-06 16:09 | SOAPPROG ---
[facility] Progress Note Assessment/Plan: Assessment:Plan: 1) Cholecystitis - s/p lap fran, good bowel sounds, taking PO, plan as per surgery 2) CBD stone/abnml Xray biliary -- IOC shows prob stones - I will review IOC with radiologist and will follow LFT's. IF LFT's decrease precipitously, then the stones may have passed. I will need to decide about ERCP based on LFT's and physical 3) Diet - as per surgery, NPO p MN in case we need to perform ERCp 4) LFT's - prob from stones, liver bx pending will follow 06/06/16 16:05 Subjective: CC- cholecystitis with poss CBD stone he is feelig OK, post surgery, has bowel sounds taking PO Objective: Vital Signs Temp Pulse Resp BP Pulse Ox 37.2 C 60 18 149/80 H 96 06/06/16 13:27 06/06/16 13:27 06/06/16 13:27 06/06/16 13:27 06/06/16 13:27 Microbiology 06/06/16 09:31 Gram Stain - Final Gallbladder - Eswab Laboratory Results 06/05/16 04:24 06/06/16 14:34 06/05/16 06/06/16 06/07/16 05:59 05:59 06:59 Intake Total 500 1430 Output Total 525 Balance 500 905 PT 13.6 SEC (12.0-15.0) 06/03/16 13:30 INR 1.05 (0.83-1.16) 06/03/16 13:30 Laboratory Tests 06/06/16 14:34 Total Bilirubin 7.1 H AST 119 H ALT 223 H Alkaline Phosphatase 368 H A+Ox3 crackles at bases, no rhonchi S1S2, RRR +BS, soft, tender no rebound ICD10 Worksheet Patient Problems: Problems Problem Status Onset Lumbar disc prolapse with radiculopathy Active Lumbar spondylosis Active Chest pressure Acute Coronary artery disease Acute Dizziness Acute Rectal bleed Acute
[2016-06-06] MEDS: ONDANSETRON DISINTEGRATING 4 MG TAB PO PRN ×2 (17:09→22:12)
[2016-06-06] MEDS: ERTAPENEM 1 GM in NS 100 ML IV SCH (17:11)
[2016-06-06] MEDS: POLYETHYLENE GLYCOL 3350 17 GM PKT PO SCH (18:55)
[2016-06-06] MEDS: amLODIPine BESYLATE 5 MG TAB PO SCH (20:15)
[2016-06-06] MEDS: OLANZapine 5 MG TAB PO SCH (20:15)
[2016-06-06] MEDS: ZOLPIDEM TARTRATE 5 MG TAB PO SCH (22:13)
[2016-06-06] MEDS: traZODone 50 MG TAB PO SCH (22:13)
[2016-06-07 05:23] LABS: % IMMATURE GRANULYOCYTES 2.1 % (0.0-1.1); ABSOLUTE IMMATURE GRANULOCYTES 0.29 10^3/uL (0.00-0.10); ADD DIFF? NO; ADD MORPH? NO; ADD SCAN? NO; ATYPICAL LYMPHOCYTE FLAG 0 (0-99); FRAGMENT RBC FLAG 0 (0-99); HEMATOCRIT 36.3 % (40.0-51.0); HEMOGLOBIN 12.8 g/dL (13.7-17.5); LEFT SHIFT FLG 20 (0-99); LIPEMIA HEMOLYSIS FLAG 90 (0-99); MEAN CELL HEMOGLOBIN 29.2 pg (27.9-34.1); MEAN CELL HEMOGLOBIN CONCENTR. 35.3 g/dL (32.4-36.7); MEAN CELL VOLUME 82.9 fL (81.5-99.8); MEAN PLATELET VOLUME 10.9 fL (8.7-11.7); PLATELET CLUMPS FLAG 0 (0-99); PLATELET COUNT 132 10^3/uL (150-400); RED BLOOD CELL COUNT 4.38 10^6/uL (4.40-6.38); RED CELL DISTRIBUTION WIDTH 13.2 % (11.5-15.2)
[2016-06-07 05:30] LABS: INR 1.04 (0.83-1.16); PROTIME(PATIENT) 13.5 SEC (12.0-15.0)
[2016-06-07 05:31] LABS: APTT 24.2 SEC (23.0-38.0)
[2016-06-07 05:34] LABS: ALANINE AMINOTRANSFERASE 198 IU/L (21-72); ALBUMIN 2.6 g/dL (3.5-5.0); ALKALINE PHOSPHATASE 367 IU/L (38-126); AMYLASE < 30 IU/L (30-110); ASPARTATE AMINOTRANSFERASE 84 IU/L (17-59); BILIRUBIN,TOTAL 4.8 mg/dL (0.1-1.4); BILIRUBIN-CONJUGATED 3.5 mg/dL (0.0-0.5); BILIRUBIN-UNCONJUGATED 1.3 mg/dL (0.0-1.1); TOTAL PROTEIN 4.6 g/dL (6.3-8.2)
[2016-06-07] MEDS: LEVOTHYROXINE 200 MCG TAB PO SCH ×2 (06:07→08:47)
[2016-06-07] MEDS: BIMATOPROST 0.01% 2.5 ML OPHT.BTL EACHEYE SCH (08:44)
[2016-06-07] MEDS: ONDANSETRON DISINTEGRATING 4 MG TAB PO PRN ×3 (08:52→20:36)
[2016-06-07] MEDS: oxyCODONE IR 5 MG TAB PO PRN ×2 (08:54→15:50)
[2016-06-07] MEDS: PROPRANOLOL HCL 40 MG TAB PO PRN ×2 (08:56→15:51)
--- NOTE | 2016-06-07 09:30 | SOAPPROG ---
SOAP Progress Note Assessment/Plan: Assessment/Plan: 71 Y M s/p lap fran, presumed choledocholithiasis on IOC. POD# 1. Feeling better. Tolerated diet yesterday. D/w GI. Labs slightly better, largely unchanged. Possible ERCP today. Seen with Dr. Mueller. S: feels good. O: gen: alert nad pulm: ctab cor: rrr abd: soft, inc cdi, no erythema, appropriately tender 06/07/16 09:26 Objective: Vital Signs Temp Pulse Resp BP Pulse Ox 36.7 C 63 18 147/89 H 90 L 06/07/16 07:52 06/07/16 07:52 06/07/16 07:52 06/07/16 07:52 06/07/16 07:52 Microbiology 06/06/16 09:31 Gram Stain - Final Gallbladder - Eswab Laboratory Results 06/07/16 04:09 06/06/16 14:34 06/06/16 06/07/16 06/08/16 04:59 05:59 05:59 Intake Total Output Total Balance PT 13.5 SEC (12.0-15.0) 06/07/16 04:09 INR 1.04 (0.83-1.16) 06/07/16 04:09 ICD10 Worksheet Patient Problems: Problems Problem Status Onset Lumbar disc prolapse with radiculopathy Active Lumbar spondylosis Active Chest pressure Acute Coronary artery disease Acute Dizziness Acute Rectal bleed Acute
[2016-06-07] MEDS: IBUPROFEN 200 MG TAB PO PRN ×3 (10:09→23:09)
[2016-06-07] MEDS: PANTOPRAZOLE SODIUM 40 MG TAB PO SCH ×2 (10:09→20:36)
[2016-06-07] MEDS ORDERED: LIDOCAINE 2% 100 MG/5 ML SYR ONE (12:54)
[2016-06-07] MEDS ORDERED: ONDANSETRON 4 MG/2 ML VIAL ONE (12:54)
[2016-06-07] MEDS ORDERED: DEXAMETHASONE 4 MG/ML VIAL ONE (12:54)
[2016-06-07] MEDS ORDERED: fentaNYL 100 MCG/2 ML INJ ONE (12:55)
[2016-06-07] MEDS ORDERED: ROCURONIUM 50 MG/5 ML VIAL ONE (12:55)
[2016-06-07] MEDS ORDERED: PROPOFOL 200 MG/20 ML VIAL ONE (12:55)
[2016-06-07] MEDS ORDERED: INDOMETHACIN 50 MG SUPP PR ONE (13:00)
[2016-06-07] MEDS ORDERED: SUGAMMADEX SODIUM 200 MG/2 ML VIAL IVP ONE (13:25)
--- NOTE | 2016-06-07 13:27 | POSTOPPROG ---
Post Op Note Date of Operation: 06/07/16 Surgeon: Armando Sousa Anesthesiologist: Sonya Pre-op Diagnosis: abnl image bilary, CBD stones Post-op Diagnosis: same Indication: abnml IOC with CDB stones Procedure: ERCp with sphincterotomy and balloon stone removal Findings: abnl duct, stone Inf/Abcess present in the surg proc area at time of surgery?: No EBL: Minimal (ml) Complications: none immediate Specimen(s): none
[2016-06-07] MEDS: TAMSULOSIN HCL 0.4 MG CAP PO SCH (14:49)
--- NOTE | 2016-06-07 17:02 | GPN ---
[f rep st] PROCEDURE NOTE DATE OF PROCEDURE: 06/07/2016 PROCEDURE: Endoscopic retrograde cholangiopancreatography with sphincterotomy and balloon, removal of debris. INDICATION FOR PROCEDURE: Abnormal intraoperative cholangiogram with probable choledocholithiasis, continued elevated liver enzymes, bilirubin all are consistent with retained common bile duct stone. PREOPERATIVE DIAGNOSIS: Retained common bile duct stone. POSTOPERATIVE DIAGNOSES: No obvious large stones noted on cholangiogram, status post sphincterotomy and balloon passage 12 mm with a small amount of debris being removed. Postballoon cholangiography does not reveal any filling defects and a normal caliber duct with good drainage. INFORMED CONSENT: I had a detailed discussion with the patient regarding the procedure, alternative s, benefits, and risks including bleeding, perforation, infection, risk of medication, and pancreati tis. Informed consent was signed and witnessed. COMPLICATIONS: None immediate. MEDICATIONS: General anesthesia as per Dr. Hassan and indomethacin 100 mg rectum. DESCRIPTION OF PROCEDURE: After adequate general anesthesia, patient was in swimmers position. Rustam e-viewing upper endoscope was inserted in the oropharynx and advanced down into the duodenum. The m ajor ampulla was located. I was in a somewhat long position. I was able to cannulate; however, the wire was initially in the pancreatic duct x2, and then I repositioned and I was able to get the wir e deep into the common hepatic duct. Contrast was injected confirming presence of the wire in the c ommon bile duct. The biliary tree was opacified. There were no obvious filling defects on the init ial imaging study. I did perform a 13 mm sphincterotomy and did a balloon passage with a 9-12 mm ba lloon inflated to 12 mm x 3 from the hepatic bifurcation down through into the duodenal bulb. On e first pass, a small amount of debris and junk was removed from the duct. I did not see any large stones removed however. A balloon cholangiography was performed after the third passage and there w as no evidence of any filling defects and the ducts looked normal. The endoscope was then withdrawn and a final picture was obtained. The endoscope was completely withdrawn, confirming the above fin dings. 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 IMPRESSION: No obvious large stones on cholangiogram, status post sphincterotomy with balloon passe s x3 with a small amount of debris removed. RECOMMENDATIONS: 1. Advance diet as tolerated. 2. Follow up clinically, probably home tomorrow as per Dr. Mueller. 3. The sphincterotomy is 13 mm. The abnormalities noted on the intraoperative cholangiogram appear ed to be about 6-8 mm, they should pass if they are higher up in the biliary tree and not visualized on today's exam. 4. Further recommendations to follow results of above and clinical course. Thank you for allowing me to participate in this patient's healthcare. Do not hesitate to call me w ith any questions. /[id number]/MODL
[2016-06-07] MEDS: POLYETHYLENE GLYCOL 3350 17 GM PKT PO SCH (17:05)
[2016-06-07] MEDS: ERTAPENEM 1 GM in NS 100 ML IV SCH (17:11)
[2016-06-07] MEDS: OLANZapine 5 MG TAB PO SCH (20:36)
[2016-06-07] MEDS: amLODIPine BESYLATE 5 MG TAB PO SCH (20:36)
--- NOTE | 2016-06-07 21:58 | SOAPPROG ---
SOAP Progress Note Assessment/Plan: Assessment: Acute cholecystitis. Doing well post op. L basal rales improved. Plan: Recheck CXR and blood work in AM. Home in AM if improvement continues. 06/05/16 17:54 06/06/16 13:42 06/07/16 21:57 Subjective: Feeling OK. Some loose stool. No abdominal pain. Breathing comfortably Objective: Vital Signs Temp Pulse Resp BP Pulse Ox 36.7 C 56 L 17 143/78 H 91 L 06/07/16 19:58 06/07/16 19:58 06/07/16 19:58 06/07/16 20:36 06/07/16 19:58 Microbiology 06/06/16 09:31 Gram Stain - Final Gallbladder - Eswab Laboratory Results 06/07/16 04:09 06/06/16 14:34 06/06/16 06/07/16 06/08/16 04:59 05:59 05:59 Intake Total 800 Output Total 0 Balance 800 PT 13.5 SEC (12.0-15.0) 06/07/16 04:09 INR 1.04 (0.83-1.16) 06/07/16 04:09 Good bowel sounds. Lungs with minimal L base rales. No significant edema. ICD10 Worksheet Patient Problems: Problems Problem Status Onset Lumbar disc prolapse with radiculopathy Active Lumbar spondylosis Active Chest pressure Acute Coronary artery disease Acute Dizziness Acute Rectal bleed Acute
[2016-06-07] MEDS: traZODone 50 MG TAB PO SCH (23:09)
[2016-06-07] MEDS: ZOLPIDEM TARTRATE 5 MG TAB PO SCH (23:09)
[2016-06-08] MEDS: diphenhydrAMINE 25 MG CAP PO PRN (03:21)
[2016-06-08] MEDS: oxyCODONE IR 5 MG TAB PO PRN ×3 (04:35→21:18)
[2016-06-08] MEDS: LEVOTHYROXINE 200 MCG TAB PO SCH (04:35)
[2016-06-08 04:55] LABS: ADD DIFF? YES; ADD MORPH? NO; ADD SCAN? NO; ATYPICAL LYMPHOCYTE FLAG 10 (0-99); FRAGMENT RBC FLAG 0 (0-99); HEMATOCRIT 35.2 % (40.0-51.0); HEMOGLOBIN 12.7 g/dL (13.7-17.5); LEFT SHIFT FLG 20 (0-99); LIPEMIA HEMOLYSIS FLAG 90 (0-99); MEAN CELL HEMOGLOBIN 29.3 pg (27.9-34.1); MEAN CELL HEMOGLOBIN CONCENTR. 36.1 g/dL (32.4-36.7); MEAN CELL VOLUME 81.3 fL (81.5-99.8); MEAN PLATELET VOLUME 10.9 fL (8.7-11.7); PLATELET CLUMPS FLAG 10 (0-99); PLATELET COUNT 177 10^3/uL (150-400); RED BLOOD CELL COUNT 4.33 10^6/uL (4.40-6.38); RED CELL DISTRIBUTION WIDTH 13.4 % (11.5-15.2)
[2016-06-08 05:11] LABS: ALANINE AMINOTRANSFERASE 296 IU/L (21-72); ALBUMIN 2.5 g/dL (3.5-5.0); ALKALINE PHOSPHATASE 564 IU/L (38-126); ANION GAP 8 mEq/L (8-16); ASPARTATE AMINOTRANSFERASE 273 IU/L (17-59); BILIRUBIN,TOTAL 6.1 mg/dL (0.1-1.4); BILIRUBIN-CONJUGATED 5.3 mg/dL (0.0-0.5); BILIRUBIN-UNCONJUGATED 0.8 mg/dL (0.0-1.1); CALCIUM 7.9 mg/dL (8.5-10.4); CARBON DIOXIDE 21 mEq/l (22-31); CHLORIDE 99 mEq/L (97-110); CREATININE 0.9 mg/dL (0.7-1.3); GLOMERULAR FILTRATION RATE > 60; GLUCOSE 290 mg/dL (70-100); SODIUM 128 mEq/L (134-144); TOTAL PROTEIN 4.8 g/dL (6.3-8.2)
[2016-06-08 05:39] LABS: PLATELET ESTIMATE ADEQUATE (ADEQ)
[2016-06-08] MEDS: BIMATOPROST 0.01% 2.5 ML OPHT.BTL EACHEYE SCH (10:14)
[2016-06-08] MEDS: TAMSULOSIN HCL 0.4 MG CAP PO SCH (10:15)
[2016-06-08] MEDS: PANTOPRAZOLE SODIUM 40 MG TAB PO SCH ×2 (10:15→21:16)
--- NOTE | 2016-06-08 11:00 | SOAPPROG ---
SOAP Progress Note Assessment/Plan: Assessment: Acute cholecystitis. Doing well post op. L basal rales resolved. Increased bili and transaminases due to ERCP from yesterday. GM + cocci on GB swab culture from surgery Plan: Recheck CXR. Recheck blood work in AM. Continue Zinacef. PT OT consults 06/05/16 17:54 06/06/16 13:42 06/07/16 21:57 06/08/16 10:58 Subjective: He had some abdominal pain this morning. Gone now. No shortness of breath. Loose BM this AM. Objective: Vital Signs Temp Pulse Resp BP Pulse Ox 36.9 C 70 16 143/69 H 92 06/08/16 07:24 06/08/16 07:24 06/08/16 07:24 06/08/16 07:24 06/08/16 07:24 Microbiology 06/06/16 09:31 Gram Stain - Final Gallbladder - Eswab Laboratory Results 06/08/16 04:16 06/08/16 04:16 06/07/16 06/08/16 06/09/16 05:59 05:59 05:59 Intake Total 800 970 Output Total 250 Balance 550 970 PT 13.5 SEC (12.0-15.0) 06/07/16 04:09 INR 1.04 (0.83-1.16) 06/07/16 04:09 Lungs clear. Abd with excellent bowel tones. COR RRR. Bili and LFTs have significantly elevated. ICD10 Worksheet Patient Problems: Problems Problem Status Onset Lumbar disc prolapse with radiculopathy Active Lumbar spondylosis Active Chest pressure Acute Coronary artery disease Acute Dizziness Acute Rectal bleed Acute
[2016-06-08] MEDS: PROPRANOLOL HCL 40 MG TAB PO PRN ×2 (11:36→18:00)
[2016-06-08] MEDS: OLANZapine 2.5 MG TAB PO SCH (11:36)
[2016-06-08] MEDS: IBUPROFEN 200 MG TAB PO PRN ×2 (11:37→18:00)
--- NOTE | 2016-06-08 11:45 | SOAPPROG ---
[facility] Progress Note Assessment/Plan: Assessment:Plan: 1) Cholecystitis - s/p lap fran, good bowel sounds, taking PO, plan as per surgery 2) CBD stone/abnml Xray biliary -- IOC shows prob stones - I will review IOC with radiologist and will follow LFT's. IF LFT's decrease precipitously, then the stones may have passed. I will need to decide about ERCP based on LFT's and physical 3) Diet - as per surgery, NPO p MN in case we need to perform ERCp 4) LFT's - prob from stones, liver bx pending will follow 06/06/16 16:05 06/08/16 11:41 s/p ERCP with sphincterotomy and balloon removal 06/07/16 1) LFT's -- up from yesterday, suspect from biliary manipulation during ERCp, follow in am, expect will decrease 2) Liver bx - pending 3) Black stools - had episode this am - he left in it toilet bowl and I saw it, query melena. IF recurs, then check h/H and further eval 4) Abdo pain - one episode at 5am otherwise feels ok, tolerating PO agree with Dr. Portillo's plan - prob home tomorrow pending labs, clinical PE etc will follow Subjective: cc- cholecystitis and choledocholithiasis s/p ERCp yesterday had black stool this am and one episode of abdo pain at 5am otherwise feels ok but not great no n/v, Objective: Vital Signs Temp Pulse Resp BP Pulse Ox 36.8 C 67 16 135/84 H 92 06/08/16 11:12 06/08/16 11:12 06/08/16 11:12 06/08/16 11:12 06/08/16 11:12 Microbiology 06/06/16 09:31 Gram Stain - Final Gallbladder - Eswab Laboratory Results 06/08/16 04:16 06/08/16 04:16 06/07/16 06/08/16 06/09/16 05:59 05:59 05:59 Intake Total 800 1170 Output Total 250 Balance 550 1170 PT 13.5 SEC (12.0-15.0) 06/07/16 04:09 INR 1.04 (0.83-1.16) 06/07/16 04:09 A+Ox3 CTA S1S2, RRR +BS, soft mild tenderness over surgical sites no r/g Laboratory Tests 06/06/16 06/07/16 06/08/16 14:34 04:09 04:16 Total Bilirubin 7.1 H 4.8 H 6.1 H Conjugated Bilirubin 5.9 H 3.5 H 5.3 H AST 119 H 84 H 273 H ALT 223 H 198 H 296 H Alkaline Phosphatase 368 H 367 H 564 H ICD10 Worksheet Patient Problems: Problems Problem Status Onset Lumbar disc prolapse with radiculopathy Active Lumbar spondylosis Active Chest pressure Acute Coronary artery disease Acute Dizziness Acute Rectal bleed Acute
--- NOTE | 2016-06-08 13:21 | SOAPPROG ---
SOAP Progress Note Assessment/Plan: Assessment: 71yo male s/p lap fran, ERCP, with persistently elevated LFT tolerating regular diet, normal BM PE non-jaundiced CTA B/L abdomen soft nontender incisions clean and dry Plan: elevated LFT possibly from ERCP will discuss with Dr Mueller 06/08/16 13:19 Objective: Vital Signs Temp Pulse Resp BP Pulse Ox 36.8 C 67 16 135/84 H 92 06/08/16 11:12 06/08/16 11:12 06/08/16 11:12 06/08/16 11:12 06/08/16 11:12 Microbiology 06/06/16 09:31 Gram Stain - Final Gallbladder - Eswab Laboratory Results 06/08/16 04:16 06/08/16 04:16 06/07/16 06/08/16 06/09/16 05:59 05:59 05:59 Intake Total 800 1170 Output Total 250 Balance 550 1170 PT 13.5 SEC (12.0-15.0) 06/07/16 04:09 INR 1.04 (0.83-1.16) 06/07/16 04:09 ICD10 Worksheet Patient Problems: Problems Problem Status Onset Lumbar disc prolapse with radiculopathy Active Lumbar spondylosis Active Chest pressure Acute Coronary artery disease Acute Dizziness Acute Rectal bleed Acute
[2016-06-08 16:59] LABS: ADD DIFF? YES; ADD MORPH? NO; ADD SCAN? NO; ATYPICAL LYMPHOCYTE FLAG 10 (0-99); FRAGMENT RBC FLAG 0 (0-99); HEMATOCRIT 33.1 % (40.0-51.0); HEMOGLOBIN 11.8 g/dL (13.7-17.5); LEFT SHIFT FLG 20 (0-99); LIPEMIA HEMOLYSIS FLAG 90 (0-99); MEAN CELL HEMOGLOBIN 29.6 pg (27.9-34.1); MEAN CELL HEMOGLOBIN CONCENTR. 35.6 g/dL (32.4-36.7); MEAN PLATELET VOLUME 10.9 fL (8.7-11.7); PLATELET CLUMPS FLAG 0 (0-99); PLATELET COUNT 188 10^3/uL (150-400); RED BLOOD CELL COUNT 3.99 10^6/uL (4.40-6.38); RED CELL DISTRIBUTION WIDTH 13.4 % (11.5-15.2)
[2016-06-08 17:52] LABS: ALANINE AMINOTRANSFERASE 582 IU/L (21-72); ALBUMIN 2.8 g/dL (3.5-5.0); ALKALINE PHOSPHATASE 676 IU/L (38-126); ANION GAP 6 mEq/L (8-16); ASPARTATE AMINOTRANSFERASE 542 IU/L (17-59); BILIRUBIN,TOTAL 7.9 mg/dL (0.1-1.4); CALCIUM 8.1 mg/dL (8.5-10.4); CARBON DIOXIDE 26 mEq/l (22-31); CHLORIDE 95 mEq/L (97-110); CREATININE 0.9 mg/dL (0.7-1.3); GLOMERULAR FILTRATION RATE > 60; GLUCOSE 351 mg/dL (70-100); POTASSIUM 4.4 mEq/L (3.5-5.2); SODIUM 127 mEq/L (134-144); TOTAL PROTEIN 4.9 g/dL (6.3-8.2)
[2016-06-08 18:00] LABS: BILIRUBIN-UNCONJUGATED 0.9 mg/dL (0.0-1.1)
[2016-06-08] MEDS: ERTAPENEM 1 GM in NS 100 ML IV SCH (18:00)
[2016-06-08] MEDS: POLYETHYLENE GLYCOL 3350 17 GM PKT PO SCH (18:01)
[2016-06-08 18:28] LABS: MICROCYTES 1+; PLATELET ESTIMATE ADEQUATE (ADEQ)
[2016-06-08] MEDS ORDERED: D50W 25 GM/50 ML SYR IVP PRN (18:28)
[2016-06-08 18:30] LABS: POLYCHROMASIA 1+; STOMATOCYTES 1+
--- NOTE | 2016-06-08 18:44 | SOAPPROG ---
SOAP Progress Note Assessment/Plan: Assessment: Acute cholecystitis. Melena post papillotomy. suspect obstruction from thrombus with increasing bili and alk phos. Plan: I called Dr. Joseph and discussed options. will follow HGB tonight. will start low dose sliding scale insulin. 06/05/16 17:54 06/06/16 13:42 06/07/16 21:57 06/08/16 10:58 06/08/16 18:42 Subjective: He has had 2 episodes of melena. Objective: Vital Signs Temp Pulse Resp BP Pulse Ox 36.9 C 63 18 140/75 H 91 L 06/08/16 15:46 06/08/16 15:46 06/08/16 15:46 06/08/16 15:46 06/08/16 15:46 Microbiology 06/06/16 09:31 Gram Stain - Final Gallbladder - Eswab Laboratory Results 06/08/16 16:45 06/08/16 17:30 06/07/16 06/08/16 06/09/16 05:59 05:59 05:59 Intake Total 800 1970 Output Total 250 Balance 550 1970 PT 13.5 SEC (12.0-15.0) 06/07/16 04:09 INR 1.04 (0.83-1.16) 06/07/16 04:09 He also has persistent high glucose despite the fact that his IV has been out all day. He has been drinking very sweet beverages. CXR improved. HGB has dropped 1 gm since this morning to 11.8. ICD10 Worksheet Patient Problems: Problems Problem Status Onset Lumbar disc prolapse with radiculopathy Active Lumbar spondylosis Active Chest pressure Acute Coronary artery disease Acute Dizziness Acute Rectal bleed Acute
[2016-06-08] MEDS: INSULIN REGULAR HUMAN 100 UNIT/ML SC SCH (21:16)
[2016-06-08] MEDS: OLANZapine 5 MG TAB PO SCH (21:16)
[2016-06-08] MEDS: ONDANSETRON 4 MG/2 ML VIAL IVP PRN (21:25)
[2016-06-08] MEDS ORDERED: ONDANSETRON 4 MG/2 ML VIAL IVP PRN (21:50)
[2016-06-08] MEDS: traZODone 50 MG TAB PO SCH (22:49)
[2016-06-08] MEDS: ZOLPIDEM TARTRATE 5 MG TAB PO SCH (22:49)
[2016-06-08 22:54] LABS: ADD DIFF? YES; ADD MORPH? NO; ADD SCAN? NO; ATYPICAL LYMPHOCYTE FLAG 20 (0-99); FRAGMENT RBC FLAG 0 (0-99); HEMATOCRIT 31.6 % (40.0-51.0); HEMOGLOBIN 11.1 g/dL (13.7-17.5); LEFT SHIFT FLG 20 (0-99); LIPEMIA HEMOLYSIS FLAG 90 (0-99); MEAN CELL HEMOGLOBIN 29.8 pg (27.9-34.1); MEAN CELL HEMOGLOBIN CONCENTR. 35.1 g/dL (32.4-36.7); MEAN CELL VOLUME 84.7 fL (81.5-99.8); PLATELET CLUMPS FLAG 0 (0-99); PLATELET COUNT 208 10^3/uL (150-400); RED BLOOD CELL COUNT 3.73 10^6/uL (4.40-6.38); RED CELL DISTRIBUTION WIDTH 13.8 % (11.5-15.2)
[2016-06-08 23:43] LABS: PLATELET ESTIMATE ADEQUATE (ADEQ); POLYCHROMASIA 1+
[2016-06-08 23:44] LABS: LARGE PLATELETS PRESENT; TOXIC GRANULATION PRESENT
[2016-06-09] MEDS: oxyCODONE IR 5 MG TAB PO PRN ×6 (02:29→22:33)
[2016-06-09] MEDS: LEVOTHYROXINE 200 MCG TAB PO SCH (05:44)
[2016-06-09 06:25] LABS: ADD DIFF? YES; ADD MORPH? NO; ADD SCAN? NO; ATYPICAL LYMPHOCYTE FLAG 20 (0-99); FRAGMENT RBC FLAG 0 (0-99); HEMOGLOBIN 10.2 g/dL (13.7-17.5); LEFT SHIFT FLG 20 (0-99); LIPEMIA HEMOLYSIS FLAG 90 (0-99); MEAN CELL HEMOGLOBIN 30.4 pg (27.9-34.1); MEAN CELL HEMOGLOBIN CONCENTR. 36.4 g/dL (32.4-36.7); MEAN CELL VOLUME 83.6 fL (81.5-99.8); MEAN PLATELET VOLUME 10.9 fL (8.7-11.7); PLATELET CLUMPS FLAG 0 (0-99); PLATELET COUNT 208 10^3/uL (150-400); RED BLOOD CELL COUNT 3.35 10^6/uL (4.40-6.38); RED CELL DISTRIBUTION WIDTH 13.6 % (11.5-15.2)
[2016-06-09 06:33] LABS: INR 1.02 (0.83-1.16); PROTIME(PATIENT) 13.3 SEC (12.0-15.0)
[2016-06-09 06:51] LABS: ALANINE AMINOTRANSFERASE 625 IU/L (21-72); ALBUMIN 2.4 g/dL (3.5-5.0); ALKALINE PHOSPHATASE 630 IU/L (38-126); ANION GAP 7 mEq/L (8-16); ASPARTATE AMINOTRANSFERASE 497 IU/L (17-59); BILIRUBIN,TOTAL 7.1 mg/dL (0.1-1.4); CARBON DIOXIDE 25 mEq/l (22-31); CHLORIDE 99 mEq/L (97-110); CREATININE 0.9 mg/dL (0.7-1.3); GLOMERULAR FILTRATION RATE > 60; GLUCOSE 287 mg/dL (70-100); POTASSIUM 4.8 mEq/L (3.5-5.2); SODIUM 131 mEq/L (134-144); TOTAL PROTEIN 4.3 g/dL (6.3-8.2)
[2016-06-09 06:58] LABS: BILIRUBIN-CONJUGATED 6.2 mg/dL (0.0-0.5); BILIRUBIN-UNCONJUGATED 0.9 mg/dL (0.0-1.1)
[2016-06-09 07:04] LABS: GIANT PLATELETS PRESENT; PLATELET ESTIMATE ADEQUATE (ADEQ); POLYCHROMASIA 1+; STOMATOCYTES 1+; TOXIC GRANULATION PRESENT
--- NOTE | 2016-06-09 08:43 | SOAPPROG ---
[facility] Progress Note Assessment/Plan: Assessment:Plan: 1) Cholecystitis - s/p lap fran, good bowel sounds, taking PO, plan as per surgery 2) CBD stone/abnml Xray biliary -- IOC shows prob stones - I will review IOC with radiologist and will follow LFT's. IF LFT's decrease precipitously, then the stones may have passed. I will need to decide about ERCP based on LFT's and physical 3) Diet - as per surgery, NPO p MN in case we need to perform ERCp 4) LFT's - prob from stones, liver bx pending will follow 06/06/16 16:05 06/08/16 11:41 s/p ERCP with sphincterotomy and balloon removal 06/07/16 1) LFT's -- up from yesterday, suspect from biliary manipulation during ERCp, follow in am, expect will decrease 2) Liver bx - pending 3) Black stools - had episode this am - he left in it toilet bowl and I saw it, query melena. IF recurs, then check h/H and further eval 4) Abdo pain - one episode at 5am otherwise feels ok, tolerating PO agree with Dr. Portillo's plan - prob home tomorrow pending labs, clinical PE etc will follow 06/09/16 08:39 1) GI bleed s/p ERCp - likely from sphincterotomy, reviewed ERCp images with radiology and my partners, do not feel any bile duct extravasation, doubt from liver bx during surgery. Hb down a bit more, no melena overnight, had 4 episodes yesterday, VSS -- optimistic that this will resolve without intervention, but if more bleeding, dropping Hb/HCT then repeat upper endoscopy 2) LFT's -- not decreasing secondary to clot blocking duct is my thought - should drop as clot moves and bleeding doesn't recur will return later this am early pm Subjective: cc- melena post ERCp with decreased Hb/HCT and increased BUN/Cr c/w UGI bleed pt feeling OK, no mmor melena overnight, no n/v no abdo pain Objective: Vital Signs Temp Pulse Resp BP Pulse Ox 36.8 C 64 16 152/71 H 93 06/09/16 07:20 06/09/16 07:20 06/09/16 07:20 06/09/16 07:20 06/09/16 07:20 Microbiology 06/03/16 14:17 Blood Culture - Final Blood 06/03/16 13:45 Blood Culture - Final Blood 06/06/16 09:31 Gram Stain - Final Gallbladder - Eswab Laboratory Results 06/09/16 05:36 06/09/16 05:36 06/08/16 06/09/16 06/10/16 05:59 05:59 05:59 Intake Total 800 2420 Output Total 250 Balance 550 2420 PT 13.3 SEC (12.0-15.0) 06/09/16 05:36 INR 1.02 (0.83-1.16) 06/09/16 05:36 A+O CTA S1S2, RRR +BS, soft NT Laboratory Tests 06/08/16 06/08/16 06/08/16 04:16 04:16 16:45 Hgb 12.7 L 11.8 L Hct 35.2 L 33.1 L BUN 27 H Creatinine 0.9 06/08/16 06/08/16 06/09/16 17:30 22:40 05:36 Hgb 11.1 L 10.2 L Hct 31.6 L 28.0 L BUN 29 H Creatinine 06/09/16 05:36 Hgb Hct BUN 34 H Creatinine 0.9 path from liver bx still pending ICD10 Worksheet Patient Problems: Problems Problem Status Onset Lumbar disc prolapse with radiculopathy Active Lumbar spondylosis Active Chest pressure Acute Coronary artery disease Acute Dizziness Acute Rectal bleed Acute
--- NOTE | 2016-06-09 08:47 | SOAPPROG ---
SOAP Progress Note Assessment/Plan: Assessment: Acute cholecystitis. Melena post papillotomy. suspect obstruction from thrombus with increasing bili and alk phos. Improving. Headache. Plan: Continue to follow labs. Continue insulin. Will increase to normal dose sliding scale insulin. 06/05/16 17:54 06/06/16 13:42 06/07/16 21:57 06/08/16 10:58 06/08/16 18:42 06/09/16 08:46 Subjective: Feeling a little better today. Head and neck pain are problematic. Objective: Vital Signs Temp Pulse Resp BP Pulse Ox 36.8 C 64 16 152/71 H 93 06/09/16 07:20 06/09/16 07:20 06/09/16 07:20 06/09/16 07:20 06/09/16 07:20 Microbiology 06/03/16 14:17 Blood Culture - Final Blood 06/03/16 13:45 Blood Culture - Final Blood 06/06/16 09:31 Gram Stain - Final Gallbladder - Eswab Laboratory Results 06/09/16 05:36 06/09/16 05:36 06/08/16 06/09/16 06/10/16 05:59 05:59 05:59 Intake Total 800 2420 Output Total 250 Balance 550 2420 PT 13.3 SEC (12.0-15.0) 06/09/16 05:36 INR 1.02 (0.83-1.16) 06/09/16 05:36 Lungs clear. Abd non tender. COR RRR. no edema. labs are slightly improved. Blood pressure good despite apparent blood loss. 4 dark stools yesterday.l HGB down to 10.2. ICD10 Worksheet Patient Problems: Problems Problem Status Onset Lumbar disc prolapse with radiculopathy Active Lumbar spondylosis Active Chest pressure Acute Coronary artery disease Acute Dizziness Acute Rectal bleed Acute
[2016-06-09] MEDS: OLANZapine 2.5 MG TAB PO SCH (09:35)
[2016-06-09] MEDS: PANTOPRAZOLE SODIUM 40 MG TAB PO SCH ×2 (09:35→22:33)
[2016-06-09] MEDS: TAMSULOSIN HCL 0.4 MG CAP PO SCH (09:36)
[2016-06-09] MEDS: INSULIN REGULAR HUMAN 100 UNIT/ML SC SCH ×4 (09:46→20:47)
[2016-06-09 10:18] LABS: HEMOGLOBIN 10.7 g/dL (13.7-17.5); MEAN CELL HEMOGLOBIN 30.2 pg (27.9-34.1); MEAN CELL HEMOGLOBIN CONCENTR. 35.7 g/dL (32.4-36.7); MEAN CELL VOLUME 84.7 fL (81.5-99.8); RED BLOOD CELL COUNT 3.54 10^6/uL (4.40-6.38); RED CELL DISTRIBUTION WIDTH 13.7 % (11.5-15.2)
[2016-06-09 10:23] LABS: HEMOGLOBIN A1C 6.6 % (4.0-6.0)
[2016-06-09] MEDS: BIMATOPROST 0.01% 2.5 ML OPHT.BTL EACHEYE SCH (11:04)
[2016-06-09] MEDS: PROPRANOLOL HCL 40 MG TAB PO PRN ×3 (11:12→22:32)
--- NOTE | 2016-06-09 11:22 | SOAPPROG ---
SOAP Progress Note Assessment/Plan: Assessment/Plan: 71 Y M s/p lap fran, ERCP, with abnormal labs # high glucose and a1c - slightly better - managed by hospital doc # melena, elevated LFT - prob d/t ERCP - continue to monitor # neck tightness - pain meds increased yesterday but doesn't want more, cont to monitor - continue neck exercises given by PT - continue regular diet with small amounts S: patient is doing well but is frustrated for his abnormal labs (+) neck tightness -- slight relief by pain meds (+) nausea (-) vomiting (+) headache --- prob d/t neck stiffness (+) melena for past the few days, 3 bouts yesterday --- prob d/t ERCP No other complaints O: Gen: aao, (-) jaundice HEENT: (+) neck stiffness, mmm Chest: ctab CVS: rrr Abd: soft non-tender, wounds OK, dressing clean and dry (+) BS Ext: (-) edema Glucose 227, A1c 6.6 early this morning -- slightly better 06/09/16 11:36 Objective: Vital Signs Temp Pulse Resp BP Pulse Ox 36.8 C 64 16 152/71 H 93 06/09/16 07:20 06/09/16 07:20 06/09/16 07:20 06/09/16 07:20 06/09/16 07:20 Microbiology 06/06/16 09:31 Gram Stain - Final Gallbladder - Eswab 06/03/16 14:17 Blood Culture - Final Blood 06/03/16 13:45 Blood Culture - Final Blood Laboratory Results 06/09/16 10:06 06/09/16 05:36 06/08/16 06/09/16 06/10/16 05:59 05:59 05:59 Intake Total 800 2420 Output Total 250 Balance 550 2420 PT 13.3 SEC (12.0-15.0) 06/09/16 05:36 INR 1.02 (0.83-1.16) 06/09/16 05:36 ICD10 Worksheet Patient Problems: Problems Problem Status Onset Lumbar disc prolapse with radiculopathy Active Lumbar spondylosis Active Chest pressure Acute Coronary artery disease Acute Dizziness Acute Rectal bleed Acute
--- NOTE | 2016-06-09 13:18 | SOAPPROG ---
[facility] Progress Note Assessment/Plan: Assessment:Plan: 1) Cholecystitis - s/p lap fran, good bowel sounds, taking PO, plan as per surgery 2) CBD stone/abnml Xray biliary -- IOC shows prob stones - I will review IOC with radiologist and will follow LFT's. IF LFT's decrease precipitously, then the stones may have passed. I will need to decide about ERCP based on LFT's and physical 3) Diet - as per surgery, NPO p MN in case we need to perform ERCp 4) LFT's - prob from stones, liver bx pending will follow 06/06/16 16:05 06/08/16 11:41 s/p ERCP with sphincterotomy and balloon removal 06/07/16 1) LFT's -- up from yesterday, suspect from biliary manipulation during ERCp, follow in am, expect will decrease 2) Liver bx - pending 3) Black stools - had episode this am - he left in it toilet bowl and I saw it, query melena. IF recurs, then check h/H and further eval 4) Abdo pain - one episode at 5am otherwise feels ok, tolerating PO agree with Dr. Portillo's plan - prob home tomorrow pending labs, clinical PE etc will follow 06/09/16 08:39 1) GI bleed s/p ERCp - likely from sphincterotomy, reviewed ERCp images with radiology and my partners, do not feel any bile duct extravasation, doubt from liver bx during surgery. Hb down a bit more, no melena overnight, had 4 episodes yesterday, VSS -- optimistic that this will resolve without intervention, but if more bleeding, dropping Hb/HCT then repeat upper endoscopy 2) LFT's -- not decreasing secondary to clot blocking duct is my thought - should drop as clot moves and bleeding doesn't recur will return later this am early pm 06/09/16 13:17 addendum at 1:17 pm Bill feeling OK, no more melena, HB up from 10.2. to 10.7, VSS H/H at 4pm Objective: Vital Signs Temp Pulse Resp BP Pulse Ox 36.7 C 69 18 144/81 H 90 L 06/09/16 11:31 06/09/16 11:31 06/09/16 11:31 06/09/16 11:31 06/09/16 11:31 Microbiology 06/06/16 09:31 Gram Stain - Final Gallbladder - Eswab 06/03/16 14:17 Blood Culture - Final Blood 06/03/16 13:45 Blood Culture - Final Blood Laboratory Results 06/09/16 10:06 06/09/16 05:36 06/08/16 06/09/16 06/10/16 05:59 05:59 05:59 Intake Total 800 2420 Output Total 250 Balance 550 2420 PT 13.3 SEC (12.0-15.0) 06/09/16 05:36 INR 1.02 (0.83-1.16) 06/09/16 05:36 ICD10 Worksheet Patient Problems: Problems Problem Status Onset Lumbar disc prolapse with radiculopathy Active Lumbar spondylosis Active Chest pressure Acute Coronary artery disease Acute Dizziness Acute Rectal bleed Acute
[2016-06-09 16:14] LABS: HEMATOCRIT 27.6 % (40.0-51.0); HEMOGLOBIN 9.9 g/dL (13.7-17.5); MEAN CELL HEMOGLOBIN 29.6 pg (27.9-34.1); MEAN CELL HEMOGLOBIN CONCENTR. 35.9 g/dL (32.4-36.7); MEAN CELL VOLUME 82.6 fL (81.5-99.8); RED BLOOD CELL COUNT 3.34 10^6/uL (4.40-6.38); RED CELL DISTRIBUTION WIDTH 13.8 % (11.5-15.2)
[2016-06-09 16:28] LABS: ALANINE AMINOTRANSFERASE 609 IU/L (21-72); ALBUMIN 2.6 g/dL (3.5-5.0); ALKALINE PHOSPHATASE 620 IU/L (38-126); ANION GAP 7 mEq/L (8-16); ASPARTATE AMINOTRANSFERASE 352 IU/L (17-59); BILIRUBIN,TOTAL 6.1 mg/dL (0.1-1.4); CALCIUM 8.1 mg/dL (8.5-10.4); CARBON DIOXIDE 25 mEq/l (22-31); CHLORIDE 97 mEq/L (97-110); CREATININE 0.9 mg/dL (0.7-1.3); GLOMERULAR FILTRATION RATE > 60; GLUCOSE 277 mg/dL (70-100); SODIUM 129 mEq/L (134-144); TOTAL PROTEIN 4.8 g/dL (6.3-8.2)
[2016-06-09 17:05] LABS: BILIRUBIN-CONJUGATED 4.9 mg/dL (0.0-0.5); BILIRUBIN-UNCONJUGATED 1.2 mg/dL (0.0-1.1)
[2016-06-09] MEDS: ERTAPENEM 1 GM in NS 100 ML IV SCH (17:33)
[2016-06-09] MEDS: POLYETHYLENE GLYCOL 3350 17 GM PKT PO SCH (17:37)
[2016-06-09] MEDS: hydrOXYzine HCL 25 MG TAB PO PRN (19:23)
[2016-06-09] MEDS: ONDANSETRON DISINTEGRATING 4 MG TAB PO PRN (20:46)
[2016-06-09] MEDS: ZOLPIDEM TARTRATE 5 MG TAB PO SCH (22:33)
[2016-06-09] MEDS: traZODone 50 MG TAB PO SCH (22:33)
[2016-06-09] MEDS: OLANZapine 5 MG TAB PO SCH (22:33)
[2016-06-09] MEDS: amLODIPine BESYLATE 5 MG TAB PO SCH (22:39)
[2016-06-09 22:49] LABS: HEMATOCRIT 24.1 % (40.0-51.0); HEMOGLOBIN 8.4 g/dL (13.7-17.5)
[2016-06-10 05:09] LABS: ABSOLUTE NRBC COUNT 0.02 10^3/uL (0-0.01); ADD DIFF? YES; ADD MORPH? NO; ADD SCAN? NO; ATYPICAL LYMPHOCYTE FLAG 10 (0-99); FRAGMENT RBC FLAG 0 (0-99); HEMATOCRIT 22.2 % (40.0-51.0); LEFT SHIFT FLG 40 (0-99); LIPEMIA HEMOLYSIS FLAG 90 (0-99); MEAN CELL HEMOGLOBIN 30.2 pg (27.9-34.1); MEAN CELL VOLUME 83.8 fL (81.5-99.8); MEAN PLATELET VOLUME 11.2 fL (8.7-11.7); NRBC-AUTO% 0.1 % (0.0-0.2); PLATELET CLUMPS FLAG 0 (0-99); PLATELET COUNT 271 10^3/uL (150-400); RED BLOOD CELL COUNT 2.65 10^6/uL (4.40-6.38); RED CELL DISTRIBUTION WIDTH 13.8 % (11.5-15.2)
[2016-06-10 05:30] LABS: ALANINE AMINOTRANSFERASE 421 IU/L (21-72); ALBUMIN 2.3 g/dL (3.5-5.0); ALKALINE PHOSPHATASE 515 IU/L (38-126); ANION GAP 6 mEq/L (8-16); ASPARTATE AMINOTRANSFERASE 130 IU/L (17-59); BILIRUBIN,TOTAL 3.3 mg/dL (0.1-1.4); CALCIUM 7.9 mg/dL (8.5-10.4); CARBON DIOXIDE 25 mEq/l (22-31); CHLORIDE 99 mEq/L (97-110); CREATININE 0.9 mg/dL (0.7-1.3); GLOMERULAR FILTRATION RATE > 60; GLUCOSE 243 mg/dL (70-100); POTASSIUM 4.8 mEq/L (3.5-5.2); SODIUM 130 mEq/L (134-144); TOTAL PROTEIN 4.3 g/dL (6.3-8.2)
[2016-06-10 05:34] LABS: PLATELET ESTIMATE ADEQUATE (ADEQ)
[2016-06-10 05:35] LABS: POLYCHROMASIA 1+
[2016-06-10 05:37] LABS: BILIRUBIN-CONJUGATED 2.3 mg/dL (0.0-0.5)
[2016-06-10] MEDS: PROPRANOLOL HCL 40 MG TAB PO PRN (06:43)
[2016-06-10] MEDS: oxyCODONE IR 5 MG TAB PO PRN ×2 (06:43→11:56)
[2016-06-10] MEDS: LEVOTHYROXINE 200 MCG TAB PO SCH (06:43)
[2016-06-10] MEDS: ONDANSETRON DISINTEGRATING 4 MG TAB PO PRN ×2 (06:46→17:55)
[2016-06-10] MEDS: INSULIN REGULAR HUMAN 100 UNIT/ML SC SCH ×4 (07:57→22:20)
[2016-06-10] MEDS: TAMSULOSIN HCL 0.4 MG CAP PO SCH (07:58)
[2016-06-10] MEDS: BIMATOPROST 0.01% 2.5 ML OPHT.BTL EACHEYE SCH (07:58)
[2016-06-10] MEDS: PANTOPRAZOLE SODIUM 40 MG TAB PO SCH ×2 (07:58→22:18)
[2016-06-10] MEDS: OLANZapine 2.5 MG TAB PO SCH (07:58)
--- NOTE | 2016-06-10 09:01 | SOAPPROG ---
SOAP Progress Note Assessment/Plan: Assessment: Acute cholecystitis. Melena post papillotomy. anemia with shortness of breath in pt with cad. Liver enzymes are improving but WBC is elevated. RO infection vs stress demargination. Plan: Continue to follow labs. Continue insulin. Ultrasound of abd to look for infection. Transfuse. Follow labs closely today. 06/05/16 17:54 06/06/16 13:42 06/07/16 21:57 06/08/16 10:58 06/08/16 18:42 06/09/16 08:46 06/10/16 08:59 Subjective: Feels short of breath. Having nausea. Still having black stools however they are formed. Objective: Vital Signs Temp Pulse Resp BP Pulse Ox 36.8 C 71 18 117/73 90 L 06/10/16 07:43 06/10/16 07:43 06/10/16 07:43 06/10/16 07:43 06/10/16 07:43 Microbiology 06/06/16 09:31 Gram Stain - Final Gallbladder - Eswab 06/03/16 14:17 Blood Culture - Final Blood 06/03/16 13:45 Blood Culture - Final Blood Laboratory Results 06/10/16 04:16 06/10/16 04:16 06/09/16 06/10/16 06/11/16 05:59 05:59 05:59 Intake Total 2420 375 Balance 2420 375 PT 13.3 SEC (12.0-15.0) 06/09/16 05:36 INR 1.02 (0.83-1.16) 06/09/16 05:36 Decreased breath sounds. Bili has increased but started to decline as of this morning. Alk phos is significantly improved. HGB 8. ICD10 Worksheet Patient Problems: Problems Problem Status Onset Lumbar disc prolapse with radiculopathy Active Lumbar spondylosis Active Chest pressure Acute Coronary artery disease Acute Dizziness Acute Rectal bleed Acute
--- NOTE | 2016-06-10 09:44 | SOAPPROG ---
SOAP Progress Note Assessment/Plan: Assessment: 71yo male s/p lap fran, ERCP, LFT improving, melena s/p ERCP now with formed stools. anemia stable -- to receive PRBC not feeling well overall, does not want any further procedures at this time for melena, NPO at this time PE non-jaundiced, appears comfortable Abdomen nondistended, incisions clean/dry, soft nontender in all 4 quadrants Plan saw with Dr Matute who discussed case further with GI and PCP Labs in AM hopefully will continue to improve with conservative measures and home / Wednesday per PCP 06/08/16 13:19 06/10/16 09:38 Objective: Vital Signs Temp Pulse Resp BP Pulse Ox 36.8 C 71 18 117/73 90 L 06/10/16 07:43 06/10/16 07:43 06/10/16 07:43 06/10/16 07:43 06/10/16 07:43 Microbiology 06/06/16 09:31 Gram Stain - Final Gallbladder - Eswab 06/03/16 14:17 Blood Culture - Final Blood 06/03/16 13:45 Blood Culture - Final Blood Laboratory Results 06/10/16 04:16 06/10/16 04:16 06/09/16 06/10/16 06/11/16 05:59 05:59 05:59 Intake Total 2420 375 Balance 2420 375 PT 13.3 SEC (12.0-15.0) 06/09/16 05:36 INR 1.02 (0.83-1.16) 06/09/16 05:36 ICD10 Worksheet Patient Problems: Problems Problem Status Onset Lumbar disc prolapse with radiculopathy Active Lumbar spondylosis Active Chest pressure Acute Coronary artery disease Acute Dizziness Acute Rectal bleed Acute
[2016-06-10] MEDS: hydrOXYzine HCL 25 MG TAB PO PRN (10:20)
[2016-06-10 11:41] LABS: ALANINE AMINOTRANSFERASE 372 IU/L (21-72); ALBUMIN 2.5 g/dL (3.5-5.0); ALKALINE PHOSPHATASE 484 IU/L (38-126); ANION GAP 5 mEq/L (8-16); ASPARTATE AMINOTRANSFERASE 91 IU/L (17-59); BILIRUBIN,TOTAL 3.3 mg/dL (0.1-1.4); CALCIUM 7.9 mg/dL (8.5-10.4); CARBON DIOXIDE 25 mEq/l (22-31); CHLORIDE 98 mEq/L (97-110); CREATININE 0.9 mg/dL (0.7-1.3); GLOMERULAR FILTRATION RATE > 60; GLUCOSE 312 mg/dL (70-100); POTASSIUM 4.4 mEq/L (3.5-5.2); SODIUM 128 mEq/L (134-144); TOTAL PROTEIN 4.5 g/dL (6.3-8.2)
[2016-06-10 11:48] LABS: BILIRUBIN-CONJUGATED 2.1 mg/dL (0.0-0.5); BILIRUBIN-UNCONJUGATED 1.2 mg/dL (0.0-1.1)
[2016-06-10] MEDS ORDERED: PROPRANOLOL HCL 20 MG TAB PO PRN (14:58)
[2016-06-10] MEDS: PROPRANOLOL HCL 40 MG TAB PO SCH (16:06)
[2016-06-10 16:25] LABS: ABSOLUTE NRBC COUNT 0.02 10^3/uL (0-0.01); ADD DIFF? YES; ADD MORPH? NO; ADD SCAN? NO; ATYPICAL LYMPHOCYTE FLAG 10 (0-99); FRAGMENT RBC FLAG 0 (0-99); HEMATOCRIT 24.2 % (40.0-51.0); HEMOGLOBIN 8.4 g/dL (13.7-17.5); LEFT SHIFT FLG 50 (0-99); LIPEMIA HEMOLYSIS FLAG 90 (0-99); MEAN CELL HEMOGLOBIN 30.1 pg (27.9-34.1); MEAN CELL HEMOGLOBIN CONCENTR. 34.7 g/dL (32.4-36.7); MEAN CELL VOLUME 86.7 fL (81.5-99.8); NRBC-AUTO% 0.1 % (0.0-0.2); PLATELET CLUMPS FLAG 0 (0-99); PLATELET COUNT 262 10^3/uL (150-400); RED BLOOD CELL COUNT 2.79 10^6/uL (4.40-6.38); RED CELL DISTRIBUTION WIDTH 14.5 % (11.5-15.2)
[2016-06-10 17:26] LABS: HYPOCHROMIA 1+; MICROCYTES 1+; PLATELET ESTIMATE ADEQUATE (ADEQ)
--- NOTE | 2016-06-10 17:44 | SOAPPROG ---
SOAP Progress Note Assessment/Plan: Assessment:Plan: 1) GI bleed s/p ERCp - likely from sphincterotomy, reviewed ERCp images with radiology and my partners, do not feel any bile duct extravasation, doubt from liver bx during surgery. Hb down a bit more, no melena overnight, had 4 episodes yesterday, VSS -- optimistic that this will resolve without intervention, but if more bleeding, dropping Hb/HCT then repeat upper endoscopy 2) LFT's -- not decreasing secondary to clot blocking duct is my thought - should drop as clot moves and bleeding doesn't recur will return later this am early pm 06/09/16 13:17 addendum at 1:17 pm Bill feeling OK, no more melena, HB up from 10.2. to 10.7, VSS H/H at 4pm 06/10/16 17:41 1) UGI bleed - slowing, had formed black stool this am, no melena today 2) LFT's - secondary to clot at sphincterotomy, decreasing today, sono without obstruction or abnormality will follow, no intervention planned Subjective: cc- GI bleed s/p ERCp Bill is feeling OK, no overt bleeding today, likely stopped did get one unit PRBC today Objective: Vital Signs Temp Pulse Resp BP Pulse Ox 36.7 C 67 16 129/67 H 90 L 06/10/16 16:21 06/10/16 16:21 06/10/16 16:21 06/10/16 16:21 06/10/16 16:21 Microbiology 06/06/16 09:31 Gram Stain - Final Gallbladder - Eswab Laboratory Results 06/10/16 16:10 06/10/16 11:05 06/09/16 06/10/16 06/11/16 05:59 05:59 05:59 Intake Total 2420 375 Balance 2420 375 PT 13.3 SEC (12.0-15.0) 06/09/16 05:36 INR 1.02 (0.83-1.16) 06/09/16 05:36 Laboratory Tests 06/09/16 06/09/16 06/09/16 10:06 15:58 15:58 Hgb 10.7 L 9.9 L BUN 37 H Creatinine 0.9 Calcium 8.1 L AST 352 H ALT 609 H Alkaline Phosphatase 620 H 06/09/16 06/10/16 06/10/16 22:30 04:16 04:16 Hgb 8.4 L 8.0 L BUN 32 H Creatinine 0.9 Calcium 7.9 L AST 130 H ALT 421 H Alkaline Phosphatase 515 H 06/10/16 06/10/16 11:05 16:10 Hgb 8.4 L BUN 33 H Creatinine 0.9 Calcium AST ALT Alkaline Phosphatase A+Ox3 CTA S1S2, RRR +BS, soft nt ICD10 Worksheet Patient Problems: Problems Problem Status Onset Lumbar disc prolapse with radiculopathy Active Lumbar spondylosis Active Chest pressure Acute Coronary artery disease Acute Dizziness Acute Rectal bleed Acute
[2016-06-10] MEDS: POLYETHYLENE GLYCOL 3350 17 GM PKT PO SCH (17:55)
[2016-06-10] MEDS: amLODIPine BESYLATE 5 MG TAB PO SCH (22:18)
[2016-06-10] MEDS: ERTAPENEM 1 GM in NS 100 ML IV SCH (22:21)
[2016-06-10] MEDS: traZODone 50 MG TAB PO SCH (22:26)
[2016-06-10] MEDS: ZOLPIDEM TARTRATE 5 MG TAB PO SCH (22:26)
[2016-06-11] MEDS: PROPRANOLOL HCL 40 MG TAB PO SCH ×5 (01:08→20:38)
[2016-06-11 05:37] LABS: ABSOLUTE NRBC COUNT 0.04 10^3/uL (0-0.01); ADD DIFF? YES; ADD MORPH? NO; ADD SCAN? NO; ATYPICAL LYMPHOCYTE FLAG 0 (0-99); FRAGMENT RBC FLAG 0 (0-99); HEMATOCRIT 27.5 % (40.0-51.0); HEMOGLOBIN 9.7 g/dL (13.7-17.5); LEFT SHIFT FLG 40 (0-99); LIPEMIA HEMOLYSIS FLAG 90 (0-99); MEAN CELL HEMOGLOBIN 31.2 pg (27.9-34.1); MEAN CELL HEMOGLOBIN CONCENTR. 35.3 g/dL (32.4-36.7); MEAN CELL VOLUME 88.4 fL (81.5-99.8); MEAN PLATELET VOLUME 10.4 fL (8.7-11.7); NRBC-AUTO% 0.2 % (0.0-0.2); PLATELET CLUMPS FLAG 0 (0-99); PLATELET COUNT 259 10^3/uL (150-400); RED BLOOD CELL COUNT 3.11 10^6/uL (4.40-6.38); RED CELL DISTRIBUTION WIDTH 14.9 % (11.5-15.2)
[2016-06-11 05:51] LABS: ALANINE AMINOTRANSFERASE 270 IU/L (21-72); ALBUMIN 2.3 g/dL (3.5-5.0); ALKALINE PHOSPHATASE 408 IU/L (38-126); ANION GAP 6 mEq/L (8-16); ASPARTATE AMINOTRANSFERASE 61 IU/L (17-59); BILIRUBIN,TOTAL 2.7 mg/dL (0.1-1.4); CALCIUM 7.9 mg/dL (8.5-10.4); CARBON DIOXIDE 24 mEq/l (22-31); CHLORIDE 100 mEq/L (97-110); CREATININE 0.8 mg/dL (0.7-1.3); GLOMERULAR FILTRATION RATE > 60; GLUCOSE 184 mg/dL (70-100); POTASSIUM 4.5 mEq/L (3.5-5.2); SODIUM 130 mEq/L (134-144); TOTAL PROTEIN 4.5 g/dL (6.3-8.2)
[2016-06-11 05:57] LABS: BILIRUBIN-CONJUGATED 1.7 mg/dL (0.0-0.5)
[2016-06-11 06:01] LABS: PLATELET ESTIMATE ADEQUATE (ADEQ); TOXIC GRANULATION PRESENT; TOXIC VACUOLIZATION PRESENT
[2016-06-11 06:02] LABS: HYPOCHROMIA 1+; MICROCYTES 1+
[2016-06-11] MEDS: LEVOTHYROXINE 200 MCG TAB PO SCH (06:11)
[2016-06-11] MEDS: TAMSULOSIN HCL 0.4 MG CAP PO SCH (07:59)
[2016-06-11] MEDS: CHOLECALCIFEROL VIT D3 2,000 UNITS TAB/CAP PO SCH (07:59)
[2016-06-11] MEDS: PANTOPRAZOLE SODIUM 40 MG TAB PO SCH ×2 (07:59→20:38)
[2016-06-11] MEDS: INSULIN REGULAR HUMAN 100 UNIT/ML SC SCH ×4 (07:59→21:27)
[2016-06-11] MEDS: BIMATOPROST 0.01% 2.5 ML OPHT.BTL EACHEYE SCH (08:02)
--- NOTE | 2016-06-11 08:44 | SOAPPROG ---
SOAP Progress Note Assessment/Plan: Assessment: Plan: 06/11/16 08:42 anemia--hgb better after 2 units prbc's, melena persists, follow hgb s/p fran--healing well from surgery leukocytosis--slight improvement, hopefully the healing trend continues, continue invanz anxiety--follow off olanzapine elevated glucose--hopefully this improves off olanzapine and clinical picture improves check am labs and a hgb this afternoon Subjective: Admits to worries regarding melena, LFT's and source of leukocytosis. Slept 4- 5 hours. Off olanzapine as of yesterday. Curious about glucose response. Stools still black, but formed. Good appetite. No increased thirst Objective: Vital Signs Temp Pulse Resp BP Pulse Ox 37.0 C 68 16 154/74 H 91 L 06/11/16 07:21 06/11/16 07:21 06/11/16 07:21 06/11/16 07:21 06/11/16 04:00 Microbiology 06/06/16 09:31 Gram Stain - Final Gallbladder - Eswab Laboratory Results 06/11/16 05:22 06/11/16 05:22 06/10/16 06/11/16 06/12/16 05:59 05:59 05:59 Intake Total 375 Balance 375 PT 13.3 SEC (12.0-15.0) 06/09/16 05:36 INR 1.02 (0.83-1.16) 06/09/16 05:36 Gen: NAD, comfortable HEENT: WNL Lungs: decreased BS right base, dry cough Heart: sinus irreg, no murmur Abd + bs soft, incisions C/DI/I LE's no edema WBC 17 slight improvedment LFT's all improving nicely Hgb 9.7 s/p 2 units PRBC's ICD10 Worksheet Patient Problems: Problems Problem Status Onset Lumbar disc prolapse with radiculopathy Active Lumbar spondylosis Active Chest pressure Acute Coronary artery disease Acute Dizziness Acute Rectal bleed Acute
--- NOTE | 2016-06-11 09:57 | SOAPPROG ---
SOAP Progress Note Assessment/Plan: Assessment: 71yo male s/p lap fran, ERCP, LFT improving, melena s/p ERCP now with formed stools. anemia stable -- to received 2 units PRBC not feeling well overall although reports shortness of breath may have improved , does not want any further procedures at this time for melena, having formed stools now. PE non-jaundiced, appears comfortable Abdomen nondistended, incisions clean/dry, soft nontender in all 4 quadrants Plan saw with Dr Matute who discussed case further with GI and PCP yesterday hopefully will continue to improve with conservative measures and home / Wednesday per PCP 06/08/16 13:19 06/10/16 09:38 06/11/16 09:55 Objective: Vital Signs Temp Pulse Resp BP Pulse Ox 37.0 C 68 16 154/74 H 91 L 06/11/16 07:21 06/11/16 07:21 06/11/16 07:21 06/11/16 07:21 06/11/16 04:00 Microbiology 06/06/16 09:31 Gram Stain - Final Gallbladder - Eswab Laboratory Results 06/11/16 05:22 06/11/16 05:22 06/10/16 06/11/16 06/12/16 05:59 05:59 05:59 Intake Total 375 Balance 375 PT 13.3 SEC (12.0-15.0) 06/09/16 05:36 INR 1.02 (0.83-1.16) 06/09/16 05:36 ICD10 Worksheet Patient Problems: Problems Problem Status Onset Lumbar disc prolapse with radiculopathy Active Lumbar spondylosis Active Chest pressure Acute Coronary artery disease Acute Dizziness Acute Rectal bleed Acute
[2016-06-11] MEDS: ONDANSETRON DISINTEGRATING 4 MG TAB PO PRN (10:39)
--- NOTE | 2016-06-11 12:47 | SOAPPROG ---
[facility] Progress Note Assessment/Plan: Assessment:Plan: 1) GI bleed s/p ERCp - likely from sphincterotomy, reviewed ERCp images with radiology and my partners, do not feel any bile duct extravasation, doubt from liver bx during surgery. Hb down a bit more, no melena overnight, had 4 episodes yesterday, VSS -- optimistic that this will resolve without intervention, but if more bleeding, dropping Hb/HCT then repeat upper endoscopy 2) LFT's -- not decreasing secondary to clot blocking duct is my thought - should drop as clot moves and bleeding doesn't recur will return later this am early pm 06/09/16 13:17 addendum at 1:17 pm Bill feeling OK, no more melena, HB up from 10.2. 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 Subjective: cc- UGI bleed from sphincterotomy doing better had bile inged stool today, no melena no pain, no n/v, eating lunch Objective: Vital Signs Temp Pulse Resp BP Pulse Ox 36.7 C 59 L 16 123/74 H 90 L 06/11/16 12:00 06/11/16 12:00 06/11/16 07:21 06/11/16 12:00 06/11/16 12:00 Microbiology 06/06/16 09:31 Gram Stain - Final Gallbladder - Eswab Laboratory Results 06/11/16 05:22 06/11/16 05:22 06/10/16 06/11/16 06/12/16 05:59 05:59 05:59 Intake Total 375 Balance 375 PT 13.3 SEC (12.0-15.0) 06/09/16 05:36 INR 1.02 (0.83-1.16) 06/09/16 05:36 A+Ox3 CTA S1S2, RRR +BS, soft NT Laboratory Tests 06/10/16 06/10/16 06/10/16 04:16 04:16 11:05 Hgb 8.0 L Calcium 7.9 L 7.9 L AST 130 H 91 H ALT 421 H 372 H Alkaline Phosphatase 515 H 484 H 06/10/16 06/11/16 06/11/16 16:10 05:22 05:22 Hgb 8.4 L 9.7 L Calcium 7.9 L AST 61 H ALT 270 H Alkaline Phosphatase 408 H ICD10 Worksheet Patient Problems: Problems Problem Status Onset Lumbar disc prolapse with radiculopathy Active Lumbar spondylosis Active Chest pressure Acute Coronary artery disease Acute Dizziness Acute Rectal bleed Acute
[2016-06-11] MEDS: ERTAPENEM 1 GM in NS 100 ML IV SCH (17:12)
[2016-06-11] MEDS: POLYETHYLENE GLYCOL 3350 17 GM PKT PO SCH (17:12)
--- NOTE | 2016-06-11 20:20 | SOAPPROG ---
[facility] Progress Note Assessment/Plan: Assessment:Plan: 1) GI bleed s/p ERCp - likely from sphincterotomy, reviewed ERCp images with radiology and my partners, do not feel any bile duct extravasation, doubt from liver bx during surgery. Hb down a bit more, no melena overnight, had 4 episodes yesterday, VSS -- optimistic that this will resolve without intervention, but if more bleeding, dropping Hb/HCT then repeat upper endoscopy 2) LFT's -- not decreasing secondary to clot blocking duct is my thought - should drop as clot moves and bleeding doesn't recur will return later this am early pm 06/09/16 13:17 addendum at 1:17 pm Bill feeling OK, no more melena, HB up from 10.2. 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 7 am tomorrow 06/11/16 20:19 I will follow labs on computer, everything seems to be improving will sign off thank you Objective: Vital Signs Temp Pulse Resp BP Pulse Ox 36.9 C 65 18 147/86 H 93 06/11/16 19:24 06/11/16 19:24 06/11/16 19:24 06/11/16 19:24 06/11/16 19:24 Microbiology 06/06/16 09:31 Gram Stain - Final Gallbladder - Eswab Laboratory Results 06/11/16 13:50 06/11/16 05:22 06/10/16 06/11/16 06/12/16 05:59 05:59 05:59 Intake Total 375 Balance 375 PT 13.3 SEC (12.0-15.0) 06/09/16 05:36 INR 1.02 (0.83-1.16) 06/09/16 05:36 ICD10 Worksheet Patient Problems: Problems Problem Status Onset Lumbar disc prolapse with radiculopathy Active Lumbar spondylosis Active Chest pressure Acute Coronary artery disease Acute Dizziness Acute Rectal bleed Acute
[2016-06-11] MEDS: amLODIPine BESYLATE 5 MG TAB PO SCH (20:38)
[2016-06-11] MEDS: oxyCODONE IR 5 MG TAB PO PRN (20:39)
[2016-06-11] MEDS: ZOLPIDEM TARTRATE 5 MG TAB PO SCH (22:33)
[2016-06-11] MEDS: traZODone 50 MG TAB PO SCH (22:33)
[2016-06-11] MEDS: diphenhydrAMINE 25 MG CAP PO PRN (22:36)
[2016-06-12] MEDS: diphenhydrAMINE 25 MG CAP PO PRN ×2 (04:13→22:40)
[2016-06-12] MEDS: LEVOTHYROXINE 200 MCG TAB PO SCH (04:13)
[2016-06-12] MEDS: PROPRANOLOL HCL 40 MG TAB PO SCH ×4 (04:13→20:55)
[2016-06-12 04:47] LABS: ABSOLUTE NRBC COUNT 0.03 10^3/uL (0-0.01); ADD DIFF? YES; ADD MORPH? NO; ADD SCAN? NO; ATYPICAL LYMPHOCYTE FLAG 0 (0-99); FRAGMENT RBC FLAG 0 (0-99); HEMATOCRIT 27.6 % (40.0-51.0); HEMOGLOBIN 9.5 g/dL (13.7-17.5); LEFT SHIFT FLG 30 (0-99); LIPEMIA HEMOLYSIS FLAG 90 (0-99); MEAN CELL HEMOGLOBIN 31.3 pg (27.9-34.1); MEAN CELL HEMOGLOBIN CONCENTR. 34.4 g/dL (32.4-36.7); MEAN CELL VOLUME 90.8 fL (81.5-99.8); MEAN PLATELET VOLUME 10.3 fL (8.7-11.7); NRBC-AUTO% 0.2 % (0.0-0.2); PLATELET CLUMPS FLAG 10 (0-99); PLATELET COUNT 284 10^3/uL (150-400); RED BLOOD CELL COUNT 3.04 10^6/uL (4.40-6.38)
[2016-06-12 04:48] LABS: ALANINE AMINOTRANSFERASE 218 IU/L (21-72); ALBUMIN 2.5 g/dL (3.5-5.0); ALKALINE PHOSPHATASE 371 IU/L (38-126); ANION GAP 6 mEq/L (8-16); ASPARTATE AMINOTRANSFERASE 50 IU/L (17-59); BILIRUBIN,TOTAL 2.3 mg/dL (0.1-1.4); CALCIUM 8.2 mg/dL (8.5-10.4); CARBON DIOXIDE 27 mEq/l (22-31); CHLORIDE 98 mEq/L (97-110); CREATININE 0.9 mg/dL (0.7-1.3); GLOMERULAR FILTRATION RATE > 60; GLUCOSE 208 mg/dL (70-100); POTASSIUM 4.6 mEq/L (3.5-5.2); SODIUM 131 mEq/L (134-144); TOTAL PROTEIN 4.7 g/dL (6.3-8.2)
[2016-06-12 04:54] LABS: BILIRUBIN-CONJUGATED 1.5 mg/dL (0.0-0.5); BILIRUBIN-UNCONJUGATED 0.8 mg/dL (0.0-1.1)
[2016-06-12 05:31] LABS: HYPOCHROMIA 1+; LARGE PLATELETS PRESENT; MICROCYTES 1+; PLATELET ESTIMATE ADEQUATE (ADEQ); POLYCHROMASIA 1+
[2016-06-12] MEDS: PANTOPRAZOLE SODIUM 40 MG TAB PO SCH ×2 (08:07→20:55)
[2016-06-12] MEDS: INSULIN REGULAR HUMAN 100 UNIT/ML SC SCH ×4 (08:07→20:54)
[2016-06-12] MEDS: CHOLECALCIFEROL VIT D3 2,000 UNITS TAB/CAP PO SCH (08:07)
[2016-06-12] MEDS: TAMSULOSIN HCL 0.4 MG CAP PO SCH (08:07)
[2016-06-12] MEDS: BIMATOPROST 0.01% 2.5 ML OPHT.BTL EACHEYE SCH (08:13)
--- NOTE | 2016-06-12 12:19 | SOAPPROG ---
SOAP Progress Note Assessment/Plan: Assessment: Acute cholecystitis. Melena post papillotomy, resolved. anemia with shortness of breath in pt with cad resolved after transfussion. Liver enzymes and WBC significantly improved. RO infection vs stress demargination. Plan: Continue to follow labs. Continue insulin. Encourage walking, May need to initiate long acting insulin. 06/05/16 17:54 06/06/16 13:42 06/07/16 21:57 06/08/16 10:58 06/08/16 18:42 06/09/16 08:46 06/10/16 08:59 06/12/16 12:18 Subjective: Still feels lousy. Nausea is present but able to eat half of breakfast. He would like to get rid of his IV. Objective: Vital Signs Temp Pulse Resp BP Pulse Ox 36.9 C 58 L 16 159/83 H 92 06/12/16 08:00 06/12/16 08:00 06/12/16 08:00 06/12/16 08:00 06/12/16 08:00 Microbiology 06/06/16 09:31 Gram Stain - Final Gallbladder - Eswab Laboratory Results 06/12/16 04:10 06/12/16 04:10 06/11/16 06/12/16 06/13/16 05:59 05:59 05:59 Intake Total 250 Balance 250 PT 13.3 SEC (12.0-15.0) 06/09/16 05:36 INR 1.02 (0.83-1.16) 06/09/16 05:36 Blood work is dramatically improved. Lungs clear. Afebrile. Liver bx suggests possibility of drug effect. He is now off tegretol and zyprexa. ICD10 Worksheet Patient Problems: Problems Problem Status Onset Lumbar disc prolapse with radiculopathy Active Lumbar spondylosis Active Chest pressure Acute Coronary artery disease Acute Dizziness Acute Rectal bleed Acute
--- NOTE | 2016-06-12 12:20 | SOAPPROG ---
SOAP Progress Note Assessment/Plan: Assessment: Acute cholecystitis. Melena post papillotomy, resolved. anemia with shortness of breath in pt with cad resolved after transfussion. Liver enzymes and WBC significantly improved. RO infection vs stress demargination. Plan: Continue to follow labs. Continue insulin. Encourage walking, May need to initiate long acting insulin. Will stop IV pr patient's request. 06/05/16 17:54 06/06/16 13:42 06/07/16 21:57 06/08/16 10:58 06/08/16 18:42 06/09/16 08:46 06/10/16 08:59 06/12/16 12:18 06/12/16 12:19 Objective: Vital Signs Temp Pulse Resp BP Pulse Ox 36.9 C 58 L 16 159/83 H 92 06/12/16 08:00 06/12/16 08:00 06/12/16 08:00 06/12/16 08:00 06/12/16 08:00 Microbiology 06/06/16 09:31 Gram Stain - Final Gallbladder - Eswab Laboratory Results 06/12/16 04:10 06/12/16 04:10 06/11/16 06/12/16 06/13/16 05:59 05:59 05:59 Intake Total 250 Balance 250 PT 13.3 SEC (12.0-15.0) 06/09/16 05:36 INR 1.02 (0.83-1.16) 06/09/16 05:36 ICD10 Worksheet Patient Problems: Problems Problem Status Onset Lumbar disc prolapse with radiculopathy Active Lumbar spondylosis Active Chest pressure Acute Coronary artery disease Acute Dizziness Acute Rectal bleed Acute
[2016-06-12] MEDS: AMOX/CLAVULANATE 500/125 MG TAB PO SCH ×2 (15:19→21:32)
[2016-06-12] MEDS: ONDANSETRON DISINTEGRATING 4 MG TAB PO PRN ×2 (15:22→21:30)
--- NOTE | 2016-06-12 15:33 | SOAPPROG ---
SOAP Progress Note Assessment/Plan: Assessment: 71yo male s/p lap fran, ERCP, LFT improving, melena s/p ERCP now with formed stools. anemia stable -- to received 2 units PRBC Melena improved. Pt tolerating regular diet surgery will sign off, f/u with Dr Mueller in 10 days, will put info in d/c summary. call if any questions of if other symptoms arise. 06/08/16 13:19 06/10/16 09:38 06/11/16 09:55 06/12/16 15:32 Objective: Vital Signs Temp Pulse Resp BP Pulse Ox 36.9 C 58 L 16 159/83 H 92 06/12/16 08:00 06/12/16 08:00 06/12/16 08:00 06/12/16 08:00 06/12/16 08:00 Microbiology 06/06/16 09:31 Gram Stain - Final Gallbladder - Eswab Laboratory Results 06/12/16 04:10 06/12/16 04:10 06/11/16 06/12/16 06/13/16 05:59 05:59 05:59 Intake Total 250 Balance 250 PT 13.3 SEC (12.0-15.0) 06/09/16 05:36 INR 1.02 (0.83-1.16) 06/09/16 05:36 ICD10 Worksheet Patient Problems: Problems Problem Status Onset Lumbar disc prolapse with radiculopathy Active Lumbar spondylosis Active Chest pressure Acute Coronary artery disease Acute Dizziness Acute Rectal bleed Acute
[2016-06-12] MEDS: oxyCODONE IR 5 MG TAB PO PRN ×2 (16:53→21:30)
[2016-06-12] MEDS: POLYETHYLENE GLYCOL 3350 17 GM PKT PO SCH (17:44)
[2016-06-12] MEDS: amLODIPine BESYLATE 5 MG TAB PO SCH (20:55)
[2016-06-12] MEDS: traZODone 50 MG TAB PO SCH (22:40)
[2016-06-12] MEDS: ZOLPIDEM TARTRATE 5 MG TAB PO SCH (22:40)
[2016-06-13 06:15] LABS: ALANINE AMINOTRANSFERASE 180 IU/L (21-72); ALBUMIN 2.6 g/dL (3.5-5.0); ALKALINE PHOSPHATASE 323 IU/L (38-126); ANION GAP 7 mEq/L (8-16); ASPARTATE AMINOTRANSFERASE 49 IU/L (17-59); CALCIUM 7.9 mg/dL (8.5-10.4); CARBON DIOXIDE 26 mEq/l (22-31); CHLORIDE 98 mEq/L (97-110); CREATININE 0.9 mg/dL (0.7-1.3); GLOMERULAR FILTRATION RATE > 60; GLUCOSE 204 mg/dL (70-100); POTASSIUM 4.8 mEq/L (3.5-5.2); SODIUM 131 mEq/L (134-144); TOTAL PROTEIN 4.9 g/dL (6.3-8.2)
[2016-06-13] MEDS: ONDANSETRON DISINTEGRATING 4 MG TAB PO PRN ×2 (06:37→14:35)
[2016-06-13] MEDS: LEVOTHYROXINE 200 MCG TAB PO SCH (06:37)
[2016-06-13] MEDS: PROPRANOLOL HCL 40 MG TAB PO SCH ×2 (06:38→12:25)
[2016-06-13] MEDS: AMOX/CLAVULANATE 500/125 MG TAB PO SCH ×2 (06:38→14:35)
[2016-06-13 08:06] VITALS: BP 146/90; PULSE 59; RESP 16; TEMP 98.4; O2SAT 91
[2016-06-13] MEDS: BIMATOPROST 0.01% 2.5 ML OPHT.BTL EACHEYE SCH (08:12)
[2016-06-13] MEDS: INSULIN REGULAR HUMAN 100 UNIT/ML SC SCH ×2 (08:13→12:14)
[2016-06-13] MEDS: CHOLECALCIFEROL VIT D3 2,000 UNITS TAB/CAP PO SCH (09:26)
[2016-06-13] MEDS: PANTOPRAZOLE SODIUM 40 MG TAB PO SCH (09:26)
[2016-06-13] MEDS: TAMSULOSIN HCL 0.4 MG CAP PO SCH (09:26)
[2016-06-13 09:31] LABS: HEMATOCRIT 29.8 % (40.0-51.0); HEMOGLOBIN 10.2 g/dL (13.7-17.5); MEAN CELL HEMOGLOBIN 31.9 pg (27.9-34.1); MEAN CELL HEMOGLOBIN CONCENTR. 34.2 g/dL (32.4-36.7); MEAN CELL VOLUME 93.1 fL (81.5-99.8); RED BLOOD CELL COUNT 3.2 10^6/uL (4.40-6.38); RED CELL DISTRIBUTION WIDTH 15.9 % (11.5-15.2)
[2016-06-13] MEDS ORDERED: oxyCODONE IR 5 MG TAB PO PRN (10:59)
[2016-06-13] MEDS ORDERED: INSULIN GLARGINE 100 UNITS/ML SYRINGE SC SCH (11:00)
--- NOTE | 2016-06-13 12:27 | SOAPPROG ---
SOAP Progress Note Assessment/Plan: Assessment: Plan: 06/13/16 12:29 Anemia: continues to improve Melena: none for a few days. Will continue to hold aspirin, plavix until he sees Dr. Portillo in f/u. Leukocytosis: improving. Remains on Augmentin. Will continue on discharge for 3- 4 more days. Cholecystitis: recovering well from surgery Hyperglycemia: Lantus added today. Will continue as outpatient. Hospital has given him a glucometer. Anxiety: on propranolol qid now, rather than zyprexa. Very anxious regarding blood sugars, monitoring. Dispo: home today on once daily Lantus. He is to f/u with Dr. Portillo early next week. Subjective: Overall feeling like he is ok to go home today. Still feeling weak, but would like to go. No further melena. WBC continues to come down. Hgb up a little. LFTs continuing to improve. Blood sugars remain high. Significant anxiety regarding ongoing glucose monitoring. Lantus added this morning by Dr. Portillo. Has had an ongoing HALL that has been helped by oxycodone prn, and he would rx for this on discharge. Objective: Vital Signs Temp Pulse Resp BP Pulse Ox 36.9 C 59 L 16 146/90 H 91 L 06/13/16 08:00 06/13/16 08:00 06/13/16 08:00 06/13/16 08:00 06/13/16 08:00 Microbiology 06/06/16 09:31 Gram Stain - Final Gallbladder - Eswab Laboratory Results 06/13/16 04:26 06/13/16 04:26 06/12/16 06/13/16 06/14/16 05:59 05:59 05:59 Intake Total 250 Balance 250 PT 13.3 SEC (12.0-15.0) 06/09/16 05:36 INR 1.02 (0.83-1.16) 06/09/16 05:36 General: well-appearing, NAD. Lungs: clear bilaterally Cardiovascular: RRR without murmur Abdomen: +bowel sounds, soft, NT Extremities: no edema ICD10 Worksheet Patient Problems: Problems Problem Status Onset Lumbar disc prolapse with radiculopathy Active Lumbar spondylosis Active Chest pressure Acute Coronary artery disease Acute Dizziness Acute Rectal bleed Acute
--- NOTE | 2016-06-13 16:10 | GDS ---
[f rep st] DISCHARGE SUMMARY DISCHARGE DIAGNOSES: 1. Cholecystitis. 2. Common bile duct stone. 3. Melena complicating ERCP sphincterotomy. 4. Anemia. 5. Abnormal liver function tests. 6. Hyperbilirubinemia. 7. Coronary artery disease. 8. Hyperglycemia. 9. Anxiety. CONSULTATIONS: 1. Gastroenterology, Dr. Joey Renteria. 2. Surgery, Dr. Vance Mueller. PROCEDURES: 1. Laparoscopic cholecystectomy. 2. ERCP with sphincterotomy and balloon stone removal. HOSPITAL COURSE: The patient is 71-year-old male with a history of coronary artery disease, depression and anxiety who was admitted with fever, nausea, jaundice and a right upper quadrant ultrasound showing gallbladder hydrops, and sludge. He was initially placed on IV antibiotics, and GI and Surgical consultations were obtained. GI initiated serologic evaluation with the expectation that the elevated bilirubin was primarily a hypersensitivity reaction to Tegretol. Surgery opted to observe. A right upper quadrant ultrasound obtained subsequently was consistent with cholecystitis. The patient then developed abnormal liver function tests, fever and chills and underwent laparoscopic cholecystectomy. He then subsequently underwent ERCP for presumed choledocholithiasis, which was seen on intraoperative cholangiogram. He had a sphincterotomy and balloon stone removal. Following his ERCP, he developed a more significantly elevated bilirubin and LFTs and had gram-positive cocci on gallbladder swab culture. He was maintained on IV antibiotics. He developed melena following his ERCP sphincterotomy and required transfusion after developing shortness of breath. He has a history of coronary artery disease. His shortness of breath resolved after transfusion. He was also noted to have elevated blood sugars and was started on sliding scale insulin. Over the course of several days, his labs gradually continued to improve. His hemoglobin stabilized. His white blood cell count decreased, and his liver function tests improved. Blood sugars continued to remain high, and long-acting insulin was initiated. At this point, he is doing better overall and feels ready for discharge. MEDICATIONS ON DISCHARGE: 1. Augmentin 500 mg t.i.d. for 4 more days. 2. Lantus 18 units subcu daily in the morning. 3. Oxycodone 5 mg 1-2 p.o. q.4 hours p.r.n. 4. Propranolol 40 mg q.i.d. 5. Bimatoprost daily. 6. Levothyroxine 200 mcg daily. 7. Crestor 5 mg daily. 8. Amlodipine 2.5 mg daily. 9. Trazodone 50 mg daily. 10. Tamsulosin 0.4 mg daily. 11. Sucralfate 10 mL q.i.d. p.r.n. 12. Zolpidem 12.5 mg at h.s. 13. Vistaril 25 to 50 mg t.i.d. p.r.n. 14. Ondansetron 4 to 8 mg q.8 p.r.n. 15. Albuterol inhaler p.r.n. 16. MiraLAX 17 g daily. 17. Pantoprazole 40 mg b.i.d. 18. Neurontin 100 mg at h.s. p.r.n. 19. Phenergan 25 mg daily as needed. Ongoing medications that are currently being held include Plavix, aspirin, ibuprofen, Zyprexa, propranolol 20 mg and Tylenol. FOLLOWUP: The patient is to follow up with Dr. Mueller 2 weeks from surgery and with Dr. Portillo early next week. /[id number]/MODL MTDD
[2016-06-16 14:32] LABS: PATH CONS ACCESSION # HR17-12633; PATH CONS FINAL DIAGNOSIS See Comments; PATH CONS MATERIAL See Comments; PATH CONS REFERRING ADDRESS See Comments
== END 2016-06-13 15:30 | disposition home or self-care (01) | DRG 418 ==
LOC: F3E 12:17
PROVIDERS: ADMIT Internal Medicine; ATTEND Internal Medicine
PROC: BF131ZZ Fluoroscopy of Gallbladder and Bile Ducts using Low Osmolar Contrast (ICD-10-PCS; principal; 2016-06-06 08:00)
PROC: 0FB14ZX Excision of Right Lobe Liver, Percutaneous Endoscopic Approach, Diagnostic (ICD-10-PCS; principal; 2016-06-06 08:00)
PROC: 0FT44ZZ Resection of Gallbladder, Percutaneous Endoscopic Approach (ICD-10-PCS; principal; 2016-06-06 08:00)
PROC: 0FC98ZZ Extirpation of Matter from Common Bile Duct, Via Natural or Artificial Opening Endoscopic (ICD-10-PCS; 2016-06-07)
PROC: 0F9C8ZZ Drainage of Ampulla of Vater, Via Natural or Artificial Opening Endoscopic (ICD-10-PCS; 2016-06-07)
PROC: 30233N1 Transfusion of Nonautologous Red Blood Cells into Peripheral Vein, Percutaneous Approach (ICD-10-PCS; 2016-06-11)
DX: K80.61 Calculus of gallbladder and bile duct with cholecystitis, unspecified, with obstruction (principal); K92.1 Melena; K76.0 Fatty (change of) liver, not elsewhere classified; R73.9 Hyperglycemia, unspecified; R17 Unspecified jaundice; I25.10 Atherosclerotic heart disease of native coronary artery without angina pectoris; K21.9 Gastro-esophageal reflux disease without esophagitis; F41.9 Anxiety disorder, unspecified; E03.9 Hypothyroidism, unspecified; E78.5 Hyperlipidemia, unspecified; Z95.1 Presence of aortocoronary bypass graft; Z95.5 Presence of coronary angioplasty implant and graft; Z98.1 Arthrodesis status
CPT/HCPCS: 82306-90; 86255-90; 86644-90; 86645-90; 86664-90; 86665-90; 86705-90; 86709-90; 88342; 97110-GP; 97116-GP; 97161-GP; A9585; G0472; G8978-GP-CI; G8979-GP-CH; G8979-GP-CI; G8980-GP-CH; J0696; J1100; J1170; J1335; J1815; J2001; J2250; J2405; J2704; J3010; P9016; Q9961

== ENCOUNTER → 2016-08-19 | Outpatient (CLI) | payer OTHER ==
[~2016-08-19] MED LIST: GADOBUTROL 10 ML VIAL IVP ONE
== END ==
LOC: FIMAGING 15:12
DX: H90.42 Sensorineural hearing loss, unilateral, left ear, with unrestricted hearing on the contralateral side (principal); J01.00 Acute maxillary sinusitis, unspecified
CPT/HCPCS: A9585

== ENCOUNTER → 2017-01-12 | Outpatient (CLI) | payer OTHER | LOC: FIMAGING 15:03 | PROVIDERS: ATTEND Nurse Practitioner | DX: Z98.1 Arthrodesis status (principal); M51.36 Other intervertebral disc degeneration, lumbar region; M51.35 Other intervertebral disc degeneration, thoracolumbar region ==

== ENCOUNTER → 2017-08-11 | Outpatient (CLI) | payer OTHER | LOC: FIMAGING 14:26 | PROVIDERS: ATTEND Internal Medicine | DX: I77.1 Stricture of artery (principal); R42 Dizziness and giddiness; R26.89 Other abnormalities of gait and mobility ==

== ENCOUNTER 2018-07-02 17:45 | Emergency (ER) | payer OTHER ==
--- NOTE | 2018-07-02 19:16 | EDPHY ---
H & P Time Seen by Provider: 07/02/18 18:21 HPI/ROS: HPI High blood sugars. 73-year-old male by private vehicle. This patient is currently managed by Dr. Rick Portillo. A few years ago he had a cholecystectomy. There was a complication with this procedure. He had some bleeding. He had unusually high blood sugars. He has a history of type 2 diabetes. After this procedure he had to be on insulin for short period of time but was weaned off of this medication. Since that time he has been on a sulfonylurea and his blood sugars have been well controlled. He saw Dr. Portillo physician assistant professor of archaeology yesterday. He was complaining of feeling low on energy and having some nausea. He has not had any vomiting or diarrhea. His blood sugar from his lab draw yesterday was 500. Dr. Frieda Parada who is covering for Dr. Portillo today called me in the emergency department and explained that she was going to send him in to be evaluated for hyperglycemia and possibly DKA. She has already reached out to his pharmacy and sent prescriptions for insulin and insulin syringes as she is down in the past. The patient describes having chronic lightheadedness which is worse with physical exertion. He denies that this is worse now. He has not had any chest pain. He denies cough. ROS: Constitutional: No fever, no chills. As above. Eyes: No discharge. No changes in vision. ENT: No sore throat. No nasal congestion or rhinorrhea. Respiratory: No cough. No shortness of breath. Cardiac: No chest pain, no palpitations. Gastrointestinal: No abdominal pain, no vomiting, no diarrhea. Genitourinary: No hematuria. No dysuria or increased frequency with urination. Musculoskeletal: No back pain. No neck pain. No myalgias or arthralgias. Skin: No rashes. Neurological: No headache. No focal weakness or altered sensation. Past medical history: Coronary artery disease, bypass, 2 stents. His accounting professor is Dr. Bairon Montero. Anxiety with benzodiazepine dependence, treated with ECT, cataracts, bowel obstruction, cholecystectomy. Social history: He is here by himself. He is . Nonsmoker. No alcohol. Physical Exam: General Appearance: Alert, mildly anxious but not in distress. This patient is responding to questions appropriately and in full sentences. This patient appears well-hydrated and well-nourished. Eyes: Pupils equal and round no pallor or injection. No lid edema, erythema or injection. Respiratory: There are no retractions, lungs are clear to auscultation with good air movement bilaterally. Cardiovascular: Regular rate and rhythm. No murmur. Gastrointestinal: Abdomen is soft and nontender, no masses, bowel sounds normal. No focal tenderness at McBurney's point. No Sutton sign. Neurological: Motor sensory function is grossly intact. Cranial nerves are normal. Gait is normal. Skin: Warm and dry, no rashes. Musculoskeletal: Neck is supple and nontender. Extremities are symmetrical. All joints range without pain or impingement. Psychiatric: No agitation. No depression. Database: EKG: EKG time is 7:22 p.m.; EKG shows a narrow complex normal sinus rhythm with a ventricular rate of 62. Atrial premature complexes. The TN, QRS, QT intervals are within normal limits. There are no ST-T wave changes indicative of ischemic or injury pattern. No evidence of right heart strain. Interpreted by me. Imaging: Procedures: Emergency department course: Blood sugar in triage was 490. Triage vital signs reviewed. He is moderately hypertensive. Vital signs are otherwise normal. An IV was placed. EKG obtained and reviewed by myself. He will be started on IV normal saline with 1 L to be given over the next hour. Standard diabetic blood work sent. Regular insulin will be given of appropriate. 8:10 p.m., 2 different potassium readings, point of care 4.5, by our lab 5.5. The patient will be given 8 units of IV regular insulin. He is not acidotic. He is just now being started on his IV fluid. Glucose to be rechecked after fluids in 1 hr. 8:57 p.m., repeat blood sugars 237. 9:50 p.m., repeat blood sugar is 160. 10:00 p.m., I spoke with Dr. Blackmon. The patient's emergency department course was discussed in detail with her. She feels comfortable with the patient being discharged from the emergency department and she will follow up closely with him tomorrow. I feel this is reasonable. The patient was re- evaluated, he is requesting discharge. Follow-up plan discussed with him. I explained that Dr. Blackmon would be contacting him in the morning with instructions on further management. Dr. Blackmon is also prescribed him insulin and insulin syringes. Return to emergency department precautions have been reviewed with the patient. All of his questions were answered. He was discharged home in good condition with his . Differential Diagnosis: The differential diagnosis on this patient includes but is not limited to hyperglycemia. DKA unlikely. This represents a partial list of diagnoses considered. These considerations are based on history, physical exam, past history, reassessment and diagnostic testing. Smoking Status: Never smoked Constitutional: Initial Vital Signs Temperature (C) 36.6 C 07/02/18 17:50 Heart Rate 74 07/02/18 17:50 Respiratory Rate 18 07/02/18 17:50 Blood Pressure 151/78 H 07/02/18 17:50 O2 Sat (%) 97 07/02/18 17:50 O2 Delivery Mode Room Air Allergies/Adverse Reactions: divalproex sodium [From Depakote] Allergy (Unknown, Verified 07/02/18 17:52) Unknown carbamazepine [From Tegretol] Allergy (Verified 07/02/18 17:52) Fever Iodinated Contrast- Oral and IV Dye Allergy (Verified 07/02/18 17:52) Wheezing latex Allergy (Verified 07/02/18 17:52) Rash Home Medications: Medication Instructions Recorded Bimatoprost 0.01% [Lumigan 0.01% 1 drops EACHEYE DAILY 09/29/15 (*)] Levothyroxine [Synthroid 200 mcg 200 mcg PO DAILY06 09/29/15 (*)] Rosuvastatin Calcium [Crestor 5mg] 5 mg PO DAILY 09/29/15 amLODIPine BESYLATE [Norvasc 5 mg 2.5 mg PO HS 09/29/15 (*)] traZODone [traZODONE 50MG (*)] 50 mg PO HS #0 tab 10/01/15 Albuterol [Proventil Inhaler HFA 1 - 2 puffs IH DAILY PRN 06/03/16 (*)] Gabapentin [Neurontin 100 MG (*)] 100 mg PO HS PRN 06/03/16 Hydroxyzine Pamoate [Vistaril] 25 - 50 mg PO TID PRN 06/03/16 Ondansetron Odt [Zofran Odt 4 mg 4 - 8 mg PO Q8HRS PRN 06/03/16 (*)] Pantoprazole Sodium [Protonix 40mg 40 mg PO BID 06/03/16 (*)] Polyethylene Glycol 3350 [Miralax 17 gm PO DAILY@18 06/03/16 17 gm (*)] Promethazine HCl [Phenergan 25mg 25 mg PO DAILY PRN 06/03/16 (*)] Sucralfate [Carafate Oral Liquid 10 ml PO QID PRN 06/03/16 100 mg/ml] Tamsulosin HCl [Flomax 0.4 MG (*)] 0.4 mg PO DAILY 06/03/16 ZOLPIDEM TARTRATE [Ambien CR 12.5 12.5 mg PO HS 06/03/16 mg] Amox Tr/K Clav (Augmentin) 500 mg PO Q8HRS #12 tab 06/13/16 [Augmentin 500/125 MG TAB (*)] Insulin Glargine [Lantus 100 18 units SC DAILY #0 ml 06/13/16 UNITS/ML] Propranolol HCl [Inderal 40mg (*)] 40 mg PO QID #120 tab 06/13/16 oxyCODONE IR [Oxycodone Ir (*)] 5 - 10 mg PO Q4HRS PRN #40 tab 06/13/16 Medical Decision Making - Data Points Laboratory Results: Laboratory Results 07/02/18 19:00 07/02/18 07/02/18 07/02/18 21:52 20:57 19:46 POC Hgb 15.6 gm/dL gm/dL (13.7-17.5) POC Hct 46 % % (40-51) Puncture Site Patient Temperature VBG pH VBG HCO3 VBG Total CO2 VBG O2 Saturation VBG Base Excess Mixed VBG pCO2 Mixed VBG pO2 POC Sodium 133 mEq/L L mEq/L (135-145) Sodium POC Potassium 4.5 mEq/L mEq/L (3.3-5.0) Potassium POC Chloride 93 mEq/L L mEq/L (97-110) Chloride Carbon Dioxide POC Total CO2 25 mEq/L mEq/L (22-31) Anion Gap POC BUN 21 mg/dL mg/dL (7-23) BUN Creatinine POC Creatinine 1.0 mg/dL mg/dL (0.7-1.3) Estimated GFR Glucose POC Glucose 160 mg/dL H mg/dL 237 mg/dL H mg/dL 491 mg/dL H mg/dL (70-100) (70-100) (70-100) Calcium Beta-Hydroxybutyrate 07/02/18 07/02/18 07/02/18 19:02 19:00 19:00 POC Hgb POC Hct Puncture Site VENOUS Patient Temperature 37.0 DEGREES DEGREES VBG pH 7.30 L (7.31-7.42) VBG HCO3 26 mEQ/L mEQ/L (22-26) VBG Total CO2 27 mEq/L mEq/L (21-27) VBG O2 Saturation 67 % % (65-75) VBG Base Excess -1.4 mEq/L mEq/L (-2.5-2.5) Mixed VBG pCO2 54 mmHg H mmHg (40-44) Mixed VBG pO2 41 mmHG H mmHG (35-40) POC Sodium Sodium 131 mEq/L L mEq/L (135-145) POC Potassium Potassium 5.5 mEq/L H mEq/L (3.5-5.2) POC Chloride Chloride 92 mEq/L L mEq/L (97-110) Carbon Dioxide 25 mEq/l mEq/l (22-31) POC Total CO2 Anion Gap 14 mEq/L mEq/L (6-14) POC BUN BUN 22 mg/dL mg/dL (7-23) Creatinine 1.0 mg/dL mg/dL (0.7-1.3) POC Creatinine Estimated GFR > 60 Glucose 497 mg/dL H mg/dL (70-100) POC Glucose Calcium 9.7 mg/dL mg/dL (8.5-10.4) Beta-Hydroxybutyrate 1.18 mmol/L H mmol/L (0.02-0.27) 07/02/18 18:29 POC Hgb POC Hct Puncture Site Patient Temperature VBG pH VBG HCO3 VBG Total CO2 VBG O2 Saturation VBG Base Excess Mixed VBG pCO2 Mixed VBG pO2 POC Sodium Sodium POC Potassium Potassium POC Chloride Chloride Carbon Dioxide POC Total CO2 Anion Gap POC BUN BUN Creatinine POC Creatinine Estimated GFR Glucose POC Glucose 490 mg/dL H mg/dL (70-100) Calcium Beta-Hydroxybutyrate Medications Given: Discontinued Medications Sodium Chloride (Ns) 1,000 mls @ 0 mls/hr IV ONCE ONE PRN Reason: Wide Open Stop: 07/02/18 20:16 Last Admin: 07/02/18 20:17 Dose: 1,000 mls Insulin Human Regular (Humulin R) 8 unit IVP EDNOW ONE Stop: 07/02/18 20:13 Last Admin: 07/02/18 20:14 Dose: 8 unit Point of Care Test Results: Chemistry 07/02/18 07/02/18 07/02/18 21:52 20:57 19:46 POC Sodium 133 mEq/L L mEq/L (135-145) POC Potassium 4.5 mEq/L mEq/L (3.3-5.0) POC Chloride 93 mEq/L L mEq/L (97-110) POC Total CO2 25 mEq/L mEq/L (22-31) POC BUN 21 mg/dL mg/dL (7-23) POC Creatinine 1.0 mg/dL mg/dL (0.7-1.3) POC Glucose 160 mg/dL H mg/dL 237 mg/dL H mg/dL 491 mg/dL H mg/dL (70-100) (70-100) (70-100) 07/02/18 18:29 POC Sodium POC Potassium POC Chloride POC Total CO2 POC BUN POC Creatinine POC Glucose 490 mg/dL H mg/dL (70-100) ISTAT H&H 07/02/18 19:46 POC Hgb 15.6 gm/dL gm/dL (13.7-17.5) POC Hct 46 % % (40-51) Departure - Departure Disposition: Home, Routine, Self-Care Clinical Impression: Hyperglycemia Condition: Good Instructions: Diabetic Hyperglycemia (ED) Additional Instructions: Read and follow provided instructions. Dr. Blackmon will contact you tomorrow morning and discuss further management. Do not take your diabetic medications tonight. Discuss dosing of these medications with Dr. Blackmon tomorrow morning before resuming your normal dosing. Return to the emergency department for worsening symptoms or other serious concerns. Referrals: Rick Portillo MD [Primary Care Provider] - As per Instructions Frieda Blackmon MD [Medical Doctor] - As per Instructions
[2018-07-02] MEDS ORDERED: INSULIN REGULAR HUMAN 100 UNIT/ML UNIT IVP ONE (20:12)
[2018-07-02] MEDS ORDERED: INSULIN REGULAR HUMAN 100 UNIT/ML UNIT ONE (20:13)
[2018-07-02] MEDS ORDERED: NS 1,000 ML IV ONE (20:15)
[2018-07-02 22:29] VITALS: BP 140/84
--- NOTE | 2018-07-03 20:57 | CPEKG ---
Test Reason : OPEN Blood Pressure : / mmHG Vent. Rate : 062 BPM Atrial Rate : 059 BPM P-R Int : 160 ms QRS Dur : 096 ms QT Int : 435 ms P-R-T Axes : 049 009 043 degrees QTc Int : 442 ms Sinus rhythm Atrial premature complex Borderline T wave abnormalities Confirmed by Shauna Venegas ([id number] on 07/03/2018 8:57:02 PM Referred By: Shauna Venegas Confirmed By:Shauna Venegas
== END 2018-07-02 22:43 | disposition home or self-care (01) ==
DX: E11.65 Type 2 diabetes mellitus with hyperglycemia (principal)
CPT/HCPCS: 93005; 96374; 99284; J1815; 82435-PO; 82565-PO; 82947-PO; 84132-PO; 84295-PO; 84520-PO; 85014-ER

== ENCOUNTER → 2018-08-09 | Outpatient (CLI) | payer OTHER | LOC: FIMAGING 14:23 | PROVIDERS: ATTEND Psychiatry & Neurology Clinical Neurophysiology | DX: R42 Dizziness and giddiness (principal); R11.10 Vomiting, unspecified | CPT/HCPCS: 70553; A9585; 82595-90; 83018-90; 84207-90; 86255-90; 86334-90; 86618-90 ==

== ENCOUNTER → 2018-09-22 | Outpatient (CLI) | payer OTHER | LOC: BMCIMAGING 16:27 ==